=== PATIENT | male | born 1980 | race Caucasian/White ===

== ENCOUNTER → 2017-11-06 | Outpatient (CLI) | payer MEDICAID ==
[~2017-11-06] MED LIST: ACET-1748 PO; ACET500T68 PO; AMOX-362 PO; ARI10 PO; AUG875 PO; BACDS PO; BACOUD TP; CALC-707 PO; CALC1TAB24 PO; CEP500 PO; CET10 PO; CHLO118L6 TP; CHLO473M14; CIP500 PO; CIT20 PO; CLOB15CR22 TP; DICY10CA11 PO; DOC100 PO; DOCU-416 PO; FLU100 PO; FLUC100T35 PO; GUAI-244 PO; HYDR28.415 TP; IBU800 PO; IBUP200C71 PO; KET10 PO; KETO10DR3; KETO5DRO71 OP; LEV500 PO; LEVO-3 PO; LITC450 PO; LOP2 PO; LOPE-147 PO; LOPE-84 PO; LOR1 PO; LOR5 PO; LOR5/325 PO; MENT113P8 TP; MENT118G; MET500 PO; NAPR220T86 PO; NIT100 PO; OMEP-153 PO; OMEP-259 GT; OND8 PO; ONDA4TAB PO; OXYB5TAB86 PO; OXYC-865 PO; PHENA200 PO; POLY17PO21 PO; TOLN150S5 TP; TOP100 PO; TRIA15CR40 TP; VEN75 PO; [UNRECOGNIZED DRUG - CODE]; [UNRECOGNIZED DRUG - CODE] TP; [UNRECOGNIZED DRUG - CODE] TP; [UNRECOGNIZED DRUG - CODE] TP; [UNRECOGNIZED DRUG - CODE] TP
--- NOTE | 2017-11-06 13:46 | RADIOLOGY IMAGING REPORT ---
FACILITY: [facility] - [place] PATIENT NAME: Robel Cason : 1980 MR: [id number] V: [id number] EXAM DATE: ORDERING PHYSICIAN: ADRIANA KAUR TECHNOLOGIST: Location: [facility] [place] Patient: Robel Cason : 1980 Visit/Account:[id number] Date of Sevice: 11/06/2017 Exam type: CHEST PA AND LAT History: Cough and congestion x1 month Comparison: Number second 2016. Findings: Patient's made a limited inspiratory effort producing crowding the bronchovascular markings bilateral ly. The appearance is similar to the prior study other than a slight increase in peribronchial thick ening in the lower lobes. No lobar consolidation identified. There is no evidence of pleural effusi ons or overt pulmonary edema. Cardiac silhouette appears normal. IMPRESSION: 1. Hypoventilatory changes from a limited inspiratory effort Increased peribronchial thickening in the lower lung connors which may represent an acute peribronchia l inflammatory process Report Dictated By: Rachel Ba MD at 11/06/2017 1:41 PM Report E-Signed By: Rachel Ba MD at 11/06/2017 1:43 PM WSN:[email or web address]
== END ==
LOC: RAD 11:39
PROVIDERS: ATTEND Family Medicine
DX: R91.8 Other nonspecific abnormal finding of lung field (principal)
CPT/HCPCS: 71046

== ENCOUNTER → 2018-02-26 | Outpatient (CLI) | payer MEDICAID ==
[2018-02-26 10:37] LABS: PLATELET COUNT, AUTOMATED 211 K/uL (150-450)
--- NOTE | 2018-02-26 13:27 | RADIOLOGY IMAGING REPORT ---
FACILITY: [facility] - [place] PATIENT NAME: Robel Cason : 1980 MR: [id number] V: [id number] EXAM DATE: ORDERING PHYSICIAN: PEDRO DYSON TECHNOLOGIST: Location: [facility] Patient: Robel Cason : 1980 Visit/Account:[id number] Date of Sevice: 02/26/2018 Exam type: CHEST PA AND LAT History: Follow-up appointment for prior cough and congestion Comparison: November 06, 2017. Findings: There are hypoventilatory changes from a limited inspiratory effort. There is been slight decrease i n the peribronchial thickening in the lower lobes. No lobar infiltrates are seen. There is no evide nce of pleural effusions or overt pulmonary edema. The cardiac silhouette is normal in size. IMPRESSION: 1. Partial improvement of the peribronchial thickening the lower lung connors when compared the prior study Report Dictated By: Rachel Ba MD at 02/26/2018 1:22 PM Report E-Signed By: Rachel Ba MD at 02/26/2018 1:24 PM WSN:[email or web address]
== END ==
LOC: RAD 10:11
PROVIDERS: ATTEND Internal Medicine Hematology
DX: R92.8 Other abnormal and inconclusive findings on diagnostic imaging of breast (principal); C62.92 Malignant neoplasm of left testis, unspecified whether descended or undescended
CPT/HCPCS: 36415; 71046; 82040; 82105; 82247; 82310; 82374; 82435; 82565; 82947; 83615; 84075; 84132; 84155; 84295; 84450; 84460; 84520; 84702; 85007; 85027

== ENCOUNTER 2018-03-05 10:35 | Outpatient (RCR) | payer MEDICAID ==
[~2018-03-05 10:35] MED LIST changes: -CHLO473M14; +CHLO473M14 RINSE; -KETO10DR3; +KETO10DR3 OU; +MENT118G TOP; +NAPR220C12 PO
[2018-03-05 10:52] VITALS: BP 119/74
--- NOTE | 2018-03-05 16:29 | ONCOLOGY FOLLOW UP NOTE ---
EVENT DATE: March 05, 2018 DIAGNOSES 1. 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 2. Down syndrome. 3. Obstructive sleep apnea. 4. Elastosis perforans serpiginosa. CHIEF COMPLAINT The patient is here today for followup of his seminoma. ONCOLOGY HISTORY The patient is a resident of the [facility] with mental retardation, and most of the history was taken from a caregiver. He is a 37-year-old male with Down syndrome. PRESENTATION With back pain in 2008 with large mass of the left testicle. DIAGNOSTIC EVALUATION Testicular ultrasound done on December 08, 2008 showed a large heterogeneous hypervascular mass about 7.5 cm. Chest x-ray showed a widened mediastinum. Preoperative tumor marker showed alpha fetoprotein less than 1, beta HCG mildly elevated at 27 and LDH high at 1314. PROCEDURE Left radical orchiectomy done on December 08, 2008. PATHOLOGY Pure seminoma with penetration of the tunica albuginea, but not to the tunica vaginalis, consistent with t2 lesion. STAGING CT of chest, abdomen and pelvis done on December 09, 2008 showed bulky upper mediastinal adenopathy as well as extensive bulky retroperitoneal adenopathy. There was a question of skeletal involvement in the lumbar spine. STAGE Stage IIIB ([id number]) pure seminoma of the left testicle with extensive retroperitoneal and mediastinal adenopathy. TREATMENT The patient received four courses of BEP chemotherapy with bleomycin, etoposide and cisplatin between November 2008 through January 2009 with residual mediastinal and retroperitoneal masses up to 3 cm in size. HISTORY OF PRESENT ILLNESS The patient is here today for followup of his seminoma of the left testicle. He is doing fine currently except for occasional diarrhea. PAST MEDICAL HISTORY 1. Seminoma of the left testicle diagnosed November 2008. 2. Left hydronephrosis secondary to obstruction due to compression by the surrounding masses. 3. Obstructive sleep apnea diagnosed September 2002. 4. Down syndrome. 5. Elastosis perforans serpiginosa. PAST SURGICAL HISTORY 1. In November 2008, left radical orchiectomy. 2. In November 2008, left ureteral stent placement. 3. In February 2009, left ureteral stent placement. 4. In July 2009, replacement of left double J ureteral stent. 5. In January 2010, replacement of left double J ureteral stent. 6. In August 2010, the patient had replacement of the left double J ureteral stent. SOCIAL HISTORY The patient has Down syndrome with mental retardation. He is a resident of the [facility]. His guardian is his father who lives in [place], [place]. His mother lives in [place]. No history of tobacco, alcohol or drugs. FAMILY HISTORY According to his caregiver, there is positive family history of cancer on the father's side. CURRENT MEDICATIONS 1. Abilify 10 mg daily. 2. Tylenol 500 mg p.r.n. 3. Antacid 500 mg chewable tablets, two tablets as needed. 4. Imodium p.r.n. for diarrhea. 5. Athlete foot spray as needed. 6. Bacitracin zinc ointment as needed. 7. Oxycodone/acetaminophen 5/325 mg one to two tablets every six hours p.r.n. 8. Colace 100 mg twice daily. 9. Dicyclomine/hydrochloride 10 mg four times daily. 10. Effexor 75 mg daily. 11. Topamax 100 mg tablet twice daily. 12. Omeprazole 20 mg daily. 13. Zyrtec 10 mg at bedtime. 14. Abilify 10 mg at bedtime. ALLERGIES No known drug allergies. REVIEW OF SYSTEMS CONSTITUTIONAL: No appetite or weight change. No fever, chills or sweating. No recent infection. HEENT: Ears: No tinnitus or hearing problem. Nose: No nasal discharge or epistaxis. Throat: No sore throat or mouth ulcers. Eyes: No diplopia or visual changes. RESPIRATORY: The patient has dry cough. CARDIOVASCULAR: No chest pain, orthopnea, or paroxysmal nocturnal dyspnea (PND) . No edema. No palpitations. GASTROINTESTINAL: No nausea or vomiting. The patient has occasional diarrhea. No constipation. No change in bowel movements. No heartburn or swallowing difficulties. No abdominal pain. No jaundice. No hematemesis, melena or rectal bleeding. GENITOURINARY: No hematuria or dysuria. MUSCULOSKELETAL: No pain in the muscles, joints or bones. NEUROLOGICAL: No tingling or numbness in the hands or feet. No headaches or convulsions. HEMATOLOGIC/LYMPHATIC: No bleeding or easy bruising. No weakness or fatigue. No enlarged lymph nodes. SKIN: No skin rash or lumps. PSYCHIATRIC: No anxiety or depression. PHYSICAL EXAMINATION GENERAL: Looks stable. Well-developed, well-nourished, and in no acute distress. VITAL SIGNS: Blood pressure 119/74, pulse 62 per minute, respirations 18 per minute, temperature 98.6, pulse ox 96% on room air. HEENT: Head: Atraumatic. No sinus tenderness to palpation. Eyes: No icterus or conjunctivitis. Mouth and throat: No oral thrush or mucositis. NECK: Supple. No cervical or supraclavicular lymphadenopathy. LUNGS: Clear to auscultation and percussion bilaterally. HEART: Regular rate and rhythm. No gallops, murmurs, clicks or rubs. ABDOMEN: Soft and lax. No tenderness. No hepatosplenomegaly. No masses. EXTREMITIES: No cyanosis, clubbing or edema. LYMPHATICS: No peripheral lymphadenopathy. NEUROLOGICAL: Conscious, alert and oriented times three. No focal motor or sensory deficits. PSYCHIATRIC: Mood and affect appear normal. SKIN: No skin rash, bruise or purpuric eruption. DIAGNOSTIC DATA CBC showed white count 3.2, hemoglobin 14, 8, hematocrit 42.7, platelets 211, 000. Chem panel totally normal except creatine 1.3, BUN 25, blood sugar 63. Other parameters are normal. Beta-HCG is normal, less than 2. Alpha fetoprotein is normal at 2 and the LDH is normal at 318. Chest x-ray on February 26, 2018 showed improvement of the peribronchial thickening and no masses could be appreciated. ASSESSMENT 1. Stage IIIB (T2 N3 M1aS2) pure seminoma of the left testicle with extensive retroperitoneal and mediastinal adenopathy, status post left radical orchiectomy done November 2008, status post four courses of BEP with bleomycin, etoposide and cisplatin received between November 2008 through January 2009 with some residual mediastinal and retroperitoneal masses up to 3 cm in size, which were decreasing in size by previous CT scans. Tumor markers with alpha fetoprotein, beta-HCG and LDH are normal currently. I am planning to continue followup. I will see him again in six months with CBC, chem panel, beta-HCG, LDH, alpha fetoprotein and chest x-ray. 2. Down syndrome. The patient is a resident of the [facility]. 3. Elastosis perforans serpiginosa. 4. Obstructive sleep apnea. PLAN 1. Continue followup. 2. The patient to return in six months with CBC, chem panel, LDH, alpha fetoprotein, beta-HCG and chest x-ray. 3. The patient to contact us for any new concern or complaints. DARRELL
== END 2018-03-25 13:52 | disposition home or self-care (01) ==
LOC: ONC 10:35
PROVIDERS: ATTEND Internal Medicine Hematology
DX: Z85.47 Personal history of malignant neoplasm of testis (principal); Q90.9 Down syndrome, unspecified; L87.2 Elastosis perforans serpiginosa; Z92.21 Personal history of antineoplastic chemotherapy; Z79.899 Other long term (current) drug therapy; G47.33 Obstructive sleep apnea (adult) (pediatric)
CPT/HCPCS: 99212

== ENCOUNTER 2018-03-12 00:53 | Day surgery (SDC) | payer MEDICAID ==
[~2018-03-12] VITALS: Ht 152.4 cm; Wt 116.1 kg
[2018-03-12] MEDS ORDERED: PROPOFOL EMUL(*) 10MG/ML 20 ML 40 ML ONE (10:10)
[2018-03-12] MEDS ORDERED: NORMOSOL R SOLN(*) 1000 ML BAG 1,000 ML IV PRN (10:30)
[2018-03-12] MEDS ORDERED: LIDOCAINE/SOD BICARB 8.4% SYR ID ONE (10:30)
[2018-03-12 10:45] VITALS: BP 116/74
[2018-03-12] MEDS ORDERED: SUCCINYLCHOL CHL 200MG/10ML VL ONE (11:15)
[2018-03-12] MEDS ORDERED: PROPOFOL EMUL(*) 10MG/ML 20 ML 20 ML ONE (12:31)
[2018-03-12 12:52] VITALS: BP 83/56
[2018-03-12 12:56] VITALS: BP 90/67
[2018-03-12 13:00] VITALS: BP 95/72
[2018-03-12 13:15] VITALS: BP 110/80
[2018-03-12 13:25] VITALS: BP 112/78
== END 2018-03-12 13:35 | disposition home or self-care (01) ==
LOC: OR 00:53
PROVIDERS: ATTEND Internal Medicine Gastroenterology
DX: K64.8 Other hemorrhoids (principal)
CPT/HCPCS: 00811; 45380; 88305; J0330; J2704

== ENCOUNTER → 2018-03-12 | Outpatient (CLI) | payer MEDICAID | LOC: RESP 21:03 | PROVIDERS: ATTEND Family Medicine | DX: G47.33 Obstructive sleep apnea (adult) (pediatric) (principal); G47.36 Sleep related hypoventilation in conditions classified elsewhere; E66.9 Obesity, unspecified ==

== ENCOUNTER → 2018-05-12 | Outpatient (REF) | payer MEDICAID ==
[~2018-05-12] MED LIST changes: +IBUP-136 PO; -IBUP200C71 PO
== END ==
LOC: ZZSENDIN 17:43
PROVIDERS: ATTEND Urology
DX: R31.1 Benign essential microscopic hematuria (principal); B96.89 Other specified bacterial agents as the cause of diseases classified elsewhere
CPT/HCPCS: 87088

== ENCOUNTER → 2018-05-13 | Outpatient (CLI) | payer MEDICAID | LOC: RESP 19:40 | PROVIDERS: ATTEND Family Medicine | DX: G47.33 Obstructive sleep apnea (adult) (pediatric) (principal) ==

== ENCOUNTER → 2018-08-27 | Outpatient (CLI) | payer MEDICAID ==
[2018-08-27 09:00] LABS: PLATELET COUNT, AUTOMATED 190 K/uL (150-450)
--- NOTE | 2018-08-27 09:42 | RADIOLOGY IMAGING REPORT ---
FACILITY: [facility] - [place] PATIENT NAME: Robel Cason : 1980 MR: [id number] V: [id number] EXAM DATE: ORDERING PHYSICIAN: PDERO DYSON TECHNOLOGIST: Location: [facility] [place] Patient: Robel Cason : 1980 Visit/Account:[id number] Date of Sevice: 08/27/2018 2 VIEWS CHEST INDICATION: Flulike symptoms, cough COMPARISON: xray February 26, 2018 FINDINGS: Heart size within normal limits. There is mild linear prominence of the central interstitium with peribronchial cuffing noted. No lia eolar consolidation, effusion or pneumothorax. IMPRESSION: 1. Mild interstitial/central bronchitic changes indicative of acute/chronic bronchitis, atypical pne umonitis or reactive airways disease. Report Dictated By: Orlando Padgett MD at 08/27/2018 9:34 AM Report E-Signed By: Orlando Padgett MD at 08/27/2018 9:37 AM WSN:[email or web address]
== END ==
LOC: RAD 08:32
PROVIDERS: ATTEND Internal Medicine Hematology
DX: C62.92 Malignant neoplasm of left testis, unspecified whether descended or undescended (principal)
CPT/HCPCS: 36415; 71046; 82040; 82105; 82247; 82310; 82374; 82435; 82565; 82947; 83615; 84075; 84132; 84155; 84295; 84450; 84460; 84520; 84702; 85007; 85027

== ENCOUNTER 2018-09-03 10:28 | Outpatient (RCR) | payer MEDICAID ==
[~2018-09-03 10:28] MED LIST changes: +POLY17PO11 PO; -POLY17PO21 PO
--- NOTE | 2018-09-04 20:00 | ONCOLOGY FOLLOW UP NOTE ---
EVENT DATE: September 03, 2018 CHIEF COMPLAINT Patient is here for followup of stage IIIB testicular cancer. HISTORY OF PRESENT ILLNESS Robel is seen today in six-month followup. He is a 38-year-old male who presented with left testicular cancer in November 2008. He underwent treatment with four courses of BEP. Tumor markers have remained within the normal limits. He has Down syndrome and is a resident at the [facility]. Overall, he is doing well. Much of his history is related by his caregiver who accompanies him. He has had a recent "cold," but no evidence of fever, significant cough, or shortness of breath. Most recent chest x-ray showed mild interstitial/central bronchitic changes felt to be acute/chronic bronchitis. He denies any other new complaints. MEDICAL HISTORY 1. 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 2. Down syndrome. 3. Obstructive sleep apnea. 4. Elastosis perforans serpiginosa. SURGICAL HISTORY 1. In November 2008, left radical orchiectomy. 2. In November 2008, left ureteral stent placement. 3. In February 2009, left ureteral stent placement. 4. In July 2009, replacement of left double-J ureteral stent. 5. In January 2010, replacement of left double-J ureteral stent. 6. In August 2010, the patient had replacement of the left double-J ureteral stent. SOCIAL HISTORY The patient has Down syndrome with mental retardation. He is a resident of the [facility]. His guardian is his father who lives in [place], [place]. His mother lives in [place]. No history of tobacco, alcohol, or drugs. FAMILY HISTORY According to his caregiver, there is positive family history of cancer on the father's side. CURRENT MEDICATIONS 1. Abilify 10 mg daily. 2. Tylenol 500 mg p.r.n. 3. Antacid 500 mg chewable tablets, two tablets as needed. 4. Imodium p.r.n. for diarrhea. 5. Athlete foot spray as needed. 6. Bacitracin zinc ointment as needed. 7. Oxycodone/acetaminophen 5/325 mg one to two tablets every six hours p.r.n. 8. Colace 100 mg twice daily. 9. Dicyclomine/hydrochloride 10 mg four times daily. 10. Effexor 75 mg daily. 11. Topamax 100 mg tablet twice daily. 12. Omeprazole 20 mg daily. 13. Zyrtec 10 mg at bedtime. 14. Abilify 10 mg at bedtime. ALLERGIES No known drug allergies. REVIEW OF SYSTEMS A 12-point review of systems is performed and is negative except as stated above. PHYSICAL EXAMINATION VITAL SIGNS: Recorded in medical record. HEAD: Normocephalic, atraumatic. EYES: Consistent with Down syndrome. No scleral icterus. MOUTH: Slightly dry mucous membranes (mouth breather). No lesions. No erythema in the posterior pharynx. LYMPHATICS: No palpable adenopathy. LUNGS: Clear bilaterally. CARDIOVASCULAR: Heart rate regular, 84 per minute without murmur, S3, or S4. EXTREMITIES: No edema. NEUROLOGIC: Nonfocal. PSYCHIATRIC: Stable mood and affect. Patient has had no issues at [facility]. SKIN: Evidence of erythema with some mild blanching, consistent with elastosis perforans serpiginosa. LABORATORIES CBC reveals a WBC of 3.1, ANC of 3.4, hemoglobin 13.4, hematocrit 40.0, platelets 190,000. CMP was within normal limits except for BUN 43 and creatinine 1.5, stable. Alpha-fetoprotein, beta HCG, and LDH were all within normal limits. IMPRESSION AND PLAN 1. Stage IIIB (T2 N3 M1a S2) pure seminoma of the left testicle with extensive retroperitoneal and mediastinal adenopathy. Underwent left radical orchiectomy in November 2008, followed by four courses of bleomycin, etoposide, and cisplatin (BEP), completed January 2009. Tumor markers have remained within normal limits. He denies any excessive shortness of breath, and his weight is stable. 2. Upper respiratory infection. Caregiver relates a recent "cold." Chest x- ray showed mild interstitial/central bronchitic changes consistent with an acute versus chronic bronchitis. He has had no fevers. 3. Down syndrome. Happily living at [facility]. 4. Leukopenia. Mild, but very stable. He has had no intercurrent infections. 5. Renal insufficiency. BUN and creatinine were 43 and 1.5 respectively. This has been stable over the past three to four years. 6. Follow up in six months for continued care. CBC, CMP, LDH, alpha- fetoprotein, beta HCG, and chest x-ray will be done before that visit. DARRELL
== END 2018-09-23 13:24 | disposition home or self-care (01) ==
LOC: ONC 10:28
PROVIDERS: ATTEND Internal Medicine Hematology
DX: Z85.47 Personal history of malignant neoplasm of testis (principal); Q90.9 Down syndrome, unspecified; L87.2 Elastosis perforans serpiginosa; Z92.21 Personal history of antineoplastic chemotherapy; Z79.899 Other long term (current) drug therapy; G47.33 Obstructive sleep apnea (adult) (pediatric); D72.819 Decreased white blood cell count, unspecified; N18.9 Chronic kidney disease, unspecified
CPT/HCPCS: 99212

== ENCOUNTER → 2019-03-04 | Outpatient (REF) | payer MEDICAID ==
[~2019-03-04] MED LIST changes: +ARIP15TA9 PO; +CALC168T17 PO; +VENL150C3 PO; -[UNRECOGNIZED DRUG - CODE]; +[UNRECOGNIZED DRUG - CODE] TOP; +[UNRECOGNIZED DRUG - CODE] TP
[2019-03-04 12:51] LABS: PLATELET COUNT, AUTOMATED 329 K/uL (150-450)
== END ==
LOC: ZZSENDIN 12:40
PROVIDERS: ATTEND Internal Medicine Hematology
DX: C62.90 Malignant neoplasm of unspecified testis, unspecified whether descended or undescended (principal)
CPT/HCPCS: 82040; 82105; 82247; 82310; 82374; 82435; 82565; 82947; 83615; 84075; 84132; 84155; 84295; 84450; 84460; 84520; 84702; 85025

== ENCOUNTER → 2019-03-04 | Outpatient (REF) | payer MEDICAID | PROVIDERS: ATTEND Nurse Practitioner Family | DX: R05 Cough (principal); R06.00 Dyspnea, unspecified | CPT/HCPCS: 83880; 85651 ==

== ENCOUNTER 2019-03-05 04:21 | Inpatient (IN) | payer MEDICAID ==
[~2019-03-05] VITALS: Ht 154.9 cm; Wt 123.4 kg
[2019-03-05] VITALS (9 sets, daily range): BP systolic 82–113; BP diastolic 48–73
[~2019-03-05 04:21] MED LIST changes: -ARIP15TA9 PO; -VENL150C3 PO
--- NOTE | 2019-03-05 04:39 | ER Report ---
History and Physical Time Seen By MD: 04:38 Hx. of Stated Complaint: LOW OXYGEN LEVELS AT HOME, WAS DIAGNOSED WITH PNEUMONIA YESTERDAY. (NADINE SUMNER MD) Time Seen By MD: 07:32 (BRISEYDA SPARKS DO) HPI/ROS CHIEF COMPLAINT: hypoxia and shortness of breath. HISTORY OF PRESENT ILLNESS: This is a 38 year old male. He was seen at urgent care yesterday, and diagnosed with pneumonia. He has been short of breath with worsening trouble breathing all day and night until this morning. Subjective fevers/chills noted by staff, but no measured fevers. He says that he has troubl e breathing, but no pain with breathing. He has a mild cough, non-productive. No nausea or vomiting. Not acting like he feels well. Denies chest pain or other pain at this time. I cannot find a chest x-ray in the system. I do see labs from yesterday, normal white blood cell count, poor renal function. Oxygen saturations are 80% on room air on admission to the ER this morning. No history of needing oxygen. He is not on antibiotics at this time. (NADINE SUMNER MD) HPI/ROS Please see Dr. Sumner note (BRISEYDA SPARKS DO) Allergies: Coded Allergies: No Known Drug Allergies (Verified , 03/05/18) Home Meds Active Scripts Chlorhexidine Gluconate (HIBICLENS) 118 Ml Liquid, 1 ML TP DAILY for 30 Days, #1 BOTTLE 3 Refills Prov:JACOB STARKEY NPC 06/25/18 Reported Medications Venlafaxine Hcl (VENLAFAXINE HCL ER) 150 Mg Cap.er.24h, 300 MG PO QDAY 03/05/19 Levothyroxine Sodium (LEVOTHYROXINE SODIUM) 100 Mcg Tablet, 175 MCG PO QDAY, TAB 03/05/19 Aripiprazole (ABILIFY) 15 Mg Tablet, 15 MG PO QHS, TAB 03/05/19 Chlorhexidine Gluconate (HIBICLENS) 118 Ml Liquid, 118 ML TP 02/10/19 Loperamide Hcl (ANTI-DIARRHEAL) 2 Mg Capsule, 2 MG PO, CAPSULE 02/10/19 Naproxen Sodium (ALEVE) 220 Mg Capsule, 220 MG PO Q12H PRN for PAIN, CAPSULE 03/05/18 Guaifenesin (ROBAFEN) 100 Mg/5 Ml Liquid, 400 MG PO Q4-6H PRN for CONGESTION 09/03/17 Ketotifen Fumarate (ALLERGY EYE DROPS) 10 Ml Drops, 1 GTT OU BID 09/03/17 Menthol/Zinc Oxide (GOLD TADEO MEDICATED BODY POWD) 113 Gm Powder, 113 GM TP 09/03/17 Chlorhexidine Gluconate (Peridex) 0.12 % Mouthwash, RINSE HS 09/03/17 Menthol (BIOFREEZE) 118 Ml Gel..ml., TOP PRN 09/03/17 Ammonium Lactate (Ammonium Lactate) 12 % Lotion, TOP BID 09/03/17 Oxybutynin Chloride (OXYBUTYNIN CHLORIDE) 5 Mg Tablet, 5 MG PO QHS, TAB 06/07/17 Triamcinolone Acetonide 0.1% Cr 15 Gm Tube (TRIAMCINOLONE ACETONIDE 0.1% CREAM) 15 Gm Cream..g., 15 GM TP PRN, TUBE 06/07/17 Acetaminophen (TYLENOL EXTRA STRENGTH) 500 Mg Tablet, 1-2 TAB PO Q4-6H, TAB 06/07/17 Ibuprofen (IBUPROFEN) 200 Mg Capsule, 1-2 CAP PO Q6H PRN for PAIN, CAPSULE 03/08/16 Hydrocortisone/Aloe Vera (HYDROCORTISONE 1% OINTMENT) 28 Gm Oint...g., 28 GM TP PRN 03/08/16 Clobetasol Propionate/Emoll (CLOBETASOL EMOLLIENT 0.05% CRM) 15 Gm Cream..g., 0 TP PRN 03/08/16 Bacitracin (BACITRACIN ZINC) 0.9 Gm Oint, 0.9 GM TP PRN 03/08/16 Tolnaftate (ATHLETE'S FOOT) 150 Gm Poplar, 150 GM TP PRN, SPRAY 03/08/16 Cetirizine Hcl (Zyrtec) 10 Mg Tab, 10 MG PO QHS 03/11/13 Discontinued Reported Medications Calcium Carbonate (ANTACID) 168 Mg Tab.chew, 168 MG PO, #2 TAB.CHEW 02/10/19 Levothyroxine Sodium (LEVOTHYROXINE SODIUM) 100 Mcg Tablet, 125 MCG PO QDAY, TAB 06/07/17 Venlafaxine Hcl (Effexor) 75 Mg Tab, 150 MG PO QDAY 03/11/13 Aripiprazole (ABILIFY (OR EQUIV)) 10 Mg Tab, 10 MG PO HS 03/11/13 Reviewed Nurses Notes: Yes (NADINE SUMNER MD) Hx Smoking: No Hx Substance Use Disorder: No Hx Alcohol Use: No (NADINE SUMNER MD) Constitutional Vital Sign - Last 24 Hours 03/05/19 03/05/19 03/05/19 03/05/19 04:26 05:30 06:00 06:30 Temp 98.6 Pulse 92 97 102 Resp 22 B/P (MAP) 104/63 109/52 (71) 91/57 (68) 88/61 (70) Pulse Ox 80 96 98 O2 Delivery Room Air (BRISEYDA SPARKS DO) Physical Exam General Appearance: The patient is alert. No acute distress. Ill appearing. Eyes: Pupils are equal, round. No pallor, injection or icterus. ENT: Mucous membranes are moist. Normal oral mucosa. Posterior oropharynx is normal. Neck: Supple and non tender. Respiratory: Lungs are clear to auscultation. No rales or wheezing noted. Cardiovascular: Regular rate and rhythm. No murmurs, gallops or rubs. Normal capillary refill. Gastrointestinal: Abdomen is soft and non tender. Nondistended. Normal active bowel sounds. Neurological: Alert and oriented x3. No focal neurologic deficits Skin: Warm and dry. No rashes. Musculoskeletal: Extremities are nontender. DIFFERENTIAL DIAGNOSIS: After history and physical exam, differential diagnosis was considered for hypoxia and shortness of breath, with diagnosis of pneumonia reported from yesterday, but not on antibiotics at this time. Past history would also be concerning for pulmonary embolism. He has history or testicular cancer, without evidence of recurrence. Fairly new changes in renal function over the last year are puzzling as well. (NADINE SUMNER MD) Physical Exam Please see Dr. Sumner note (BRISEYDA SPARKS DO) Medical Decision Making Data Points Result Diagram: 03/05/19 0438 03/05/19 1255 Laboratory Hematology Test 03/05/19 00:00 03/05/19 04:38 03/05/19 07:45 B-Type Natriuretic Peptide 59 pg/ml (0-100) Red Blood Count 3.14 M/uL (4.00-5.60) Mean Corpuscular Volume 97.2 fL (80.0-96.0) Mean Corpuscular Hemoglobin 33.0 pg (26.0-33.0) Mean Corpuscular Hemoglobin Concent 34.0 g/dL (32.0-36.0) Red Cell Distribution Width 14.8 % (11.5-14.5) Mean Platelet Volume 8.4 fL (7.2-11.1) Neutrophils (%) (Auto) 73.9 % (39.4-72.5) Lymphocytes (%) (Auto) 13.6 % (17.6-49.6) Monocytes (%) (Auto) 9.2 % (4.1-12.4) Eosinophils (%) (Auto) 2.2 % (0.4-6.7) Basophils (%) (Auto) 1.1 % (0.3-1.4) Nucleated RBC Relative Count (auto) 0.0 /100WBC Neutrophils # (Auto) 5.1 K/uL (2.0-7.4) Lymphocytes # (Auto) 0.9 K/uL (1.3-3.6) Monocytes # (Auto) 0.6 K/uL (0.3-1.0) Eosinophils # (Auto) 0.2 K/uL (0.0-0.5) Basophils # (Auto) 0.1 K/uL (0.0-0.1) Nucleated RBC Absolute Count (auto) 0.00 K/uL Erythrocyte Sedimentation Rate 103 mm/HOUR (0-15) Prothrombin Time 14.2 seconds (12.0-14.4) Prothromb Time International Ratio 1.09 Activated Partial Thromboplast Time 42 seconds (23-35) D-Dimer Quantitative (PE/DVT) 1.13 ug/ml (0-0.50) Sodium Level 140 mmol/L (137-145) Potassium Level 4.2 mmol/L (3.5-5.0) Chloride Level 108 mmol/L (98-107) Carbon Dioxide Level 24 mmol/L (22-30) Blood Urea Nitrogen 67 mg/dl (9-21) Creatinine 2.60 mg/dl (0.66-1.25) Glomerular Filtration Rate Calc 27.9 Random Glucose 105 mg/dl (75-110) Calcium Level 8.9 mg/dl (8.4-10.2) Total Bilirubin 0.2 mg/dl (0.2-1.3) Aspartate Amino Transf (AST/SGOT) 10 U/L (0-35) Alanine Aminotransferase (ALT/SGPT) 18 U/L (0-56) Alkaline Phosphatase 48 U/L (0-126) Troponin I < 0.012 ng/ml Total Protein 6.9 g/dl (6.3-8.2) Albumin 3.4 g/dl (3.5-5.0) Urine Color Colorless Urine Clarity Clear Urine pH 6.0 pH (4.8-9.5) Urine Specific Watson 1.005 Urine Protein Negative mg/dL (NEGATIVE) Urine Glucose (UA) Negative mg/dL (NEGATIVE) Urine Ketones Negative mg/dL (NEGATIVE) Urine Blood Negative (NEGATIVE) Urine Nitrite Negative (NEGATIVE) Urine Bilirubin Negative (NEGATIVE) Urine Urobilinogen Negative mg/dL (0.2-1.9) Urine Leukocyte Esterase Negative (NEGATIVE) Urine RBC None /HPF (0-2/HPF) Urine WBC None /HPF (0-5/HPF) Urine Squamous Epithelial Cells Few /LPF (</=FEW) Urine Bacteria Negative /HPF (NONE-FEW) Urine Mucus None /HPF (NONE-FEW) Chemistry Test 03/05/19 00:00 03/05/19 04:38 03/05/19 07:45 B-Type Natriuretic Peptide 59 pg/ml (0-100) White Blood Count 6.9 k/uL (4.5-11.0) Red Blood Count 3.14 M/uL (4.00-5.60) Hemoglobin 10.4 g/dL (14.0-18.0) Hematocrit 30.5 % (42.0-52.0) Mean Corpuscular Volume 97.2 fL (80.0-96.0) Mean Corpuscular Hemoglobin 33.0 pg (26.0-33.0) Mean Corpuscular Hemoglobin Concent 34.0 g/dL (32.0-36.0) Red Cell Distribution Width 14.8 % (11.5-14.5) Platelet Count 321 K/uL (150-450) Mean Platelet Volume 8.4 fL (7.2-11.1) Neutrophils (%) (Auto) 73.9 % (39.4-72.5) Lymphocytes (%) (Auto) 13.6 % (17.6-49.6) Monocytes (%) (Auto) 9.2 % (4.1-12.4) Eosinophils (%) (Auto) 2.2 % (0.4-6.7) Basophils (%) (Auto) 1.1 % (0.3-1.4) Nucleated RBC Relative Count (auto) 0.0 /100WBC Neutrophils # (Auto) 5.1 K/uL (2.0-7.4) Lymphocytes # (Auto) 0.9 K/uL (1.3-3.6) Monocytes # (Auto) 0.6 K/uL (0.3-1.0) Eosinophils # (Auto) 0.2 K/uL (0.0-0.5) Basophils # (Auto) 0.1 K/uL (0.0-0.1) Nucleated RBC Absolute Count (auto) 0.00 K/uL Erythrocyte Sedimentation Rate 103 mm/HOUR (0-15) Prothrombin Time 14.2 seconds (12.0-14.4) Prothromb Time International Ratio 1.09 Activated Partial Thromboplast Time 42 seconds (23-35) D-Dimer Quantitative (PE/DVT) 1.13 ug/ml (0-0.50) Glomerular Filtration Rate Calc 27.9 Calcium Level 8.9 mg/dl (8.4-10.2) Total Bilirubin 0.2 mg/dl (0.2-1.3) Aspartate Amino Transf (AST/SGOT) 10 U/L (0-35) Alanine Aminotransferase (ALT/SGPT) 18 U/L (0-56) Alkaline Phosphatase 48 U/L (0-126) Troponin I < 0.012 ng/ml Total Protein 6.9 g/dl (6.3-8.2) Albumin 3.4 g/dl (3.5-5.0) Urine Color Colorless Urine Clarity Clear Urine pH 6.0 pH (4.8-9.5) Urine Specific Watson 1.005 Urine Protein Negative mg/dL (NEGATIVE) Urine Glucose (UA) Negative mg/dL (NEGATIVE) Urine Ketones Negative mg/dL (NEGATIVE) Urine Blood Negative (NEGATIVE) Urine Nitrite Negative (NEGATIVE) Urine Bilirubin Negative (NEGATIVE) Urine Urobilinogen Negative mg/dL (0.2-1.9) Urine Leukocyte Esterase Negative (NEGATIVE) Urine RBC None /HPF (0-2/HPF) Urine WBC None /HPF (0-5/HPF) Urine Squamous Epithelial Cells Few /LPF (</=FEW) Urine Bacteria Negative /HPF (NONE-FEW) Urine Mucus None /HPF (NONE-FEW) Coagulation Test 03/05/19 04:38 Prothrombin Time 14.2 seconds Prothromb Time International Ratio 1.09 Activated Partial Thromboplast Time 42 seconds D-Dimer Quantitative (PE/DVT) 1.13 ug/ml Urinalysis Test 03/05/19 07:45 Urine Color Colorless Urine Clarity Clear Urine pH 6.0 pH (4.8-9.5) Urine Specific Watson 1.005 Urine Protein Negative mg/dL (NEGATIVE) Urine Glucose (UA) Negative mg/dL (NEGATIVE) Urine Ketones Negative mg/dL (NEGATIVE) Urine Blood Negative (NEGATIVE) Urine Nitrite Negative (NEGATIVE) Urine Bilirubin Negative (NEGATIVE) Urine Urobilinogen Negative mg/dL (0.2-1.9) Urine Leukocyte Esterase Negative (NEGATIVE) Urine RBC None /HPF (0-2/HPF) Urine WBC None /HPF (0-5/HPF) Urine Squamous Epithelial Cells Few /LPF (</=FEW) Urine Bacteria Negative /HPF (NONE-FEW) Urine Mucus None /HPF (NONE-FEW) (BRISEYDA SPARKS DO) EKG/Imaging EKG Interpretation 12 lead EKG: Rhythm: normal sinus rhythm, rate 96 Victor: normal QRS: normal ST segments: normal Imaging CHEST SINGLE AP 03/05/2019 04:46 hours. HISTORY: Short of breath. Hypoxia. COMPARISON: 03/04/2019 and studies dating to 12/08/2008. TECHNIQUE: Portable AP view of the chest. FINDINGS: Tubes/lines/hardware: None. Pulmonary/pleura: Ill-defined rounded opacity in the right upper lobe has a similar appearance to the most recent comparison study. There is eventration of the right hemidiaphragm. Left lung remains clear. Patient's chin projects over the lung apices. There is no pneumothorax or pleural effusion. Cardiomediastinal: Cardiac and mediastinal silhouettes are within normal limits. Bones/soft tissues: No acute osseous abnormality. The visible abdomen is normal. IMPRESSION: 1. Unchanged, ill-defined rounded opacity in the right upper lobe, new from August 2018. Findings may be due to pneumonia, but follow-up chest x-ray to ensure clearing is recommended. Report Dictated By: Liat Narvaez at 03/05/2019 5:27 AM (NADINE SUMNER MD) Imaging PATIENT NAME: Robel Cason : 1980 MR: [id number] V: [id number] EXAM DATE: ORDERING PHYSICIAN: NADINE SUMNER TECHNOLOGIST: Location: [facility] Patient: Robel Cason : 1980 Visit/Account:[id number] Date of Sevice: 03/05/2019 CT of the chest, abdomen, and pelvis, without contrast: Indication: New right lung opacity. History of seminoma. Technique: Helical CT was performed through the chest, abdomen, and pelvis, without contrast. Multiplanar reconstructions are reviewed. One of the following dose optimization techniques was utilized in the performance of this exam: Automated exposure control; adjustment of the mA and/or kV according to the patient's size; or use of an iterative reconstruction technique. Specific details can be referenced in the facility's radiology CT exam operational policy. Comparison: 06/07/2017 Findings: Lungs: There is a large mass-like opacity in the right upper lobe, with ill- defined margins and a few air bronchograms. It measures approximately 7.2 x 5.1 x 5.1 cm. This likely represents pneumonia. No additional mass-like opacities or nodules are observed in either lung. Pleural spaces: There is minimal fluid in the right pleural space. There is no evidence of pleural mass or calcification. Mediastinum: There may be a few small lymph nodes in the mediastinum. There are no signs of mediastinal mass or definite lymph node enlargement. The heart and pericardial soft tissues appear unremarkable. Liver: Normal in size, shape, and density. Gallbladder and biliary tree: The gallbladder is homogeneous and unremarkable, as visualized. The bile ducts are not dilated. Pancreas: Normal in size, shape, and density. Spleen: Normal in size, shape, and density. A tiny accessory spleen appears unchanged. Adrenal glands: Normal in size and shape. There is a tiny calcification in the left adrenal gland, unchanged from the previous study. Kidneys: There is now evidence of moderate hydroureteronephrosis on the right, not observed on the previous study. The right ureter is dilated down to the level of the bladder junction. There are no signs of obstructing calculus. No focal soft tissue abnormality is clearly identified around the distal ureter or in the bladder wall. The right kidney is otherwise unremarkable and unchanged. There are no signs of intrarenal calculus. There is chronic hydronephrosis and parenchymal atrophy in the left kidney, without interval change. There are no signs of left urinary tract calculus. Intestinal structures: Unremarkable and unchanged. There are no signs of obstruction or focal inflammatory changes. The appendix appears unremarkable and unchanged. Urinary bladder: The lumen appears homogeneous and unchanged. There are no signs of intraluminal calculus, mass, or focal deformity of the bladder wall. Pelvic structures: There are no signs of soft tissue mass, lymph node enlargement, fluid, or inflammatory process. Ascites or fluid collections: None seen. Skeletal structures: Intact and unchanged. There are chronic degenerative changes in the spine. No acute skeletal deformity is identified. IMPRESSION: There is a large mass-like opacity in the right upper lobe, compatible with pneumonia. No additional pulmonary parenchymal opacities or nodules are identified. There is minimal fluid in the right pleural space. There is now evidence of moderate right hydroureteronephrosis, of indeterminant etiology. No obstructing calculus or mass is clearly identified. Urologic consultation is recommended. The evaluation of the abdomen and pelvis is otherwise unchanged. Report Dictated By: Qamar Munson MD at 03/05/2019 6:58 AM Report E-Signed By: Qamar Munson MD at 03/05/2019 7:21 AM WSN:[id number] (BRISEYDA SPARKS DO) ED Course/Re-evaluation Clinical Indication for ER IV: IV Access ED Course Initial treatment was done by obtaining labs including CBC, CMP, d-dimer as well as a chest x-ray. Given the patient's history, also included EKG and troponin. EKG and troponin were negative. CBC does not show an elevated white count. CMP does show the recent changes in his BUN and creatinine as noted above. D-dimer was elevated as well. Because of his GFR, CT angiogram with contrast is unable to be performed I reviewed the patient's old notes, specifically looking at old oncology notes. 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 He has had multiple problems with the left kidney with multiple stents and is seen Dr. Verdugo, urology, for multiple interventions. Over the last year he has had the decline in his renal function which is unexplained. Each oncology note shows that they continue to follow tumor markers including LDH, alpha- fetoprotein, and beta hCG as well as a chest x-ray on each visit. Some of the older notes seem to indicate that he had history of retroperitoneal as well as mediastinal adenopathy. I spoke with hospitalist regarding the patient's care to discuss findings as we ll as further workup that might be indicated and also discuss this with radiology. A CT scan of the chest, abdomen and pelvis was done without contrast, to further explore the abnormal appearance of chest x-ray as well as the recent decline in renal function. (NADINE SUMNER MD) ED Course I assumed patient care from Dr. Sumner at shift change at 7:00. I evaluated the patient at bedside and completed a bedside echo to gauge for general cardiac function. CT imaging resulted in further defining a right lung opacity possibly infectious in etiology or malignancy. Patient was given ceftriaxone, azithromycin to cover for community-acquired pneumonia. Patient was given fluid bolus. I discussed the patient with Dr. Verdugo who was the urologist transportation engineering technician who recommended adding inflammatory markers, tumor markers. Patient's kidney seems to be obstructed and will likely need urological intervention in the near future. I discussed the patient with Dr. Prieto who was the hospitalist on duty who accepted the patient to his service. Patient was hemodynamically stable at time of admission. Decision to Disposition Date: March 05, 2019 Decision to Disposition Time: 08:06 (BRISEYDA SPARKS DO) Depart Departure Latest Vital Signs Vital Signs Date Time Temp Pulse Resp B/P (MAP) Pulse Ox O2 Delivery O2 Flow Rate FiO2 03/05/19 06:30 102 88/61 (70) 98 03/05/19 04:26 98.6 22 Room Air (BRISEYDA SPARKS DO) Impression: Primary Impression: Renal failure (ARF), acute on chronic Additional Impressions: Shortness of breath Lung mass Hypoxia Condition: Condition Unchanged Disposition: Admitted from ER Problem Qualifiers NADINE SUMNER MD March 05, 2019 04:39 BRISEYDA SPARKS DO March 05, 2019 07:33
[2019-03-05 05:01] LABS: PLATELET COUNT, AUTOMATED 321 K/uL (150-450)
[2019-03-05 05:06] LABS: INR 1.09
--- NOTE | 2019-03-05 05:34 | RADIOLOGY IMAGING REPORT ---
FACILITY: [facility] PATIENT NAME: Robel Cason : 1980 MR: [id number] V: [id number] EXAM DATE: ORDERING PHYSICIAN: NADINE GILLESPIE TECHNOLOGIST: Location: [facility] - [place] Patient: Robel Cason : 1980 Visit/Account:[id number] Date of Sevice: 03/05/2019 CHEST SINGLE AP 03/05/2019 04:46 hours. HISTORY: Short of breath. Hypoxia. COMPARISON: 03/04/2019 and studies dating to 12/08/2008. TECHNIQUE: Portable AP view of the chest. FINDINGS: Tubes/lines/hardware: None. Pulmonary/pleura: Ill-defined rounded opacity in the right upper lobe has a similar appearance to the most recent comparison study. There is eventration of the right hemidiaphragm. Left lung remains dion ar. Patient's chin projects over the lung apices. There is no pneumothorax or pleural effusion. Cardiomediastinal: Cardiac and mediastinal silhouettes are within normal limits. Bones/soft tissues: No acute osseous abnormality. The visible abdomen is normal. IMPRESSION: 1. Unchanged, ill-defined rounded opacity in the right upper lobe, new from August 2018. Findings m ay be due to pneumonia, but follow-up chest x-ray to ensure clearing is recommended. Report Dictated By: Liat Narvaez at 03/05/2019 5:27 AM Report E-Signed By: Liat Narvaez at 03/05/2019 5:30 AM WSN:[id number]
[2019-03-05] MEDS ORDERED: IOPAMIDOL 76% 150 ML INFUS BTL 0 ML ONE (05:43)
[2019-03-05] MEDS ORDERED: NS(*) 0.9% 50 ML BAG 0 ML ONE (05:43)
--- NOTE | 2019-03-05 06:12 | EKG ---
FACILITY: [facility] [place] PATIENT NAME: MARCO ROMERO : [id number] MR: [id number] V: [id number] EXAM DATE: ORDERING PHYSICIAN: NADINE GILLESPIE TECHNOLOGIST: NEGIN Vidal Reason : hypoxia, SOB Blood Pressure : / mmHG Vent. Rate : 096 BPM Atrial Rate : 096 BPM P-R Int : 194 ms QRS Dur : 088 ms QT Int : 352 ms P-R-T Axes : -18 071 014 degrees QTc Int : 444 ms Normal sinus rhythm Normal ECG When compared with ECG of 18-NOV-2013 07:41, Vent. rate has increased BY 41 BPM Confirmed by Emre Scherer ([id number]) on 03/05/2019 7:49:24 AM Referred By: Confirmed By:Emre Rao
[2019-03-05] MEDS ORDERED: NS(*) 0.9% 500 ML BAG 500 ML IV ONE (07:20)
--- NOTE | 2019-03-05 07:24 | RADIOLOGY IMAGING REPORT ---
FACILITY: [facility] PATIENT NAME: Robel Cason : 1980 MR: [id number] V: [id number] EXAM DATE: ORDERING PHYSICIAN: NADINE GILLESPIE TECHNOLOGIST: Location: [facility] [place] Patient: Robel Cason : 1980 Visit/Account:[id number] Date of Sevice: 03/05/2019 CT of the chest, abdomen, and pelvis, without contrast: Indication: New right lung opacity. History of seminoma. Technique: Helical CT was performed through the chest, abdomen, and pelvis, without contrast. Multipl jon reconstructions are reviewed. One of the following dose optimization techniques was utilized in the performance of this exam: Autom ated exposure control; adjustment of the mA and/or kV according to the patient's size; or use of an i terative reconstruction technique. Specific details can be referenced in the facility's radiology CT exam operational policy. Comparison: 06/07/2017 Findings: Lungs: There is a large mass-like opacity in the right upper lobe, with ill-defined margins and a few air bronchograms. It measures approximately 7.2 x 5.1 x 5.1 cm. This likely represents pneumonia. No additional mass-like opacities or nodules are observed in either lung. Pleural spaces: There is minimal fluid in the right pleural space. There is no evidence of pleural ma ss or calcification. Mediastinum: There may be a few small lymph nodes in the mediastinum. There are no signs of mediastin al mass or definite lymph node enlargement. The heart and pericardial soft tissues appear unremarkabl e. Liver: Normal in size, shape, and density. Gallbladder and biliary tree: The gallbladder is homogeneous and unremarkable, as visualized. The deneen e ducts are not dilated. Pancreas: Normal in size, shape, and density. Spleen: Normal in size, shape, and density. A tiny accessory spleen appears unchanged. Adrenal glands: Normal in size and shape. There is a tiny calcification in the left adrenal gland, un changed from the previous study. Kidneys: There is now evidence of moderate hydroureteronephrosis on the right, not observed on the pr evious study. The right ureter is dilated down to the level of the bladder junction. There are no sig ns of obstructing calculus. No focal soft tissue abnormality is clearly identified around the distal ureter or in the bladder wall. The right kidney is otherwise unremarkable and unchanged. There are no signs of intrarenal calculus. There is chronic hydronephrosis and parenchymal atrophy in the left kidney, without interval change. There are no signs of left urinary tract calculus. Intestinal structures: Unremarkable and unchanged. There are no signs of obstruction or focal inflamm atory changes. The appendix appears unremarkable and unchanged. Urinary bladder: The lumen appears homogeneous and unchanged. There are no signs of intraluminal calc ulus, mass, or focal deformity of the bladder wall. Pelvic structures: There are no signs of soft tissue mass, lymph node enlargement, fluid, or inflamma tory process. Ascites or fluid collections: None seen. Skeletal structures: Intact and unchanged. There are chronic degenerative changes in the spine. No ac [place] skeletal deformity is identified. IMPRESSION: There is a large mass-like opacity in the right upper lobe, compatible with pneumonia. No additional pulmonary parenchymal opacities or nodules are identified. There is minimal fluid in the right pleural space. There is now evidence of moderate right hydroureteronephrosis, of indeterminant etiology. No obstruct ing calculus or mass is clearly identified. Urologic consultation is recommended. The evaluation of the abdomen and pelvis is otherwise unchanged. Report Dictated By: Qamar Munson MD at 03/05/2019 6:58 AM Report E-Signed By: Qamar Munson MD at 03/05/2019 7:21 AM WSN:[id number]
[2019-03-05] MEDS ORDERED: cefTRIAXone 2 GM VIAL IVP ONE (08:05)
[2019-03-05] MEDS ORDERED: AZITHROMYCIN(*) 500 MG 500 MG in NS(*) 0.9% 250 ML BAG 250 ML IVPB ONE (08:05)
[2019-03-05] MEDS ORDERED: LEVO-3 PO (08:38)
[2019-03-05] MEDS ORDERED: VENL150C3 PO (08:38)
[2019-03-05] MEDS ORDERED: ARIP15TA9 PO (08:38)
[2019-03-05] MEDS ORDERED: NS(*) 0.9% 1000 ML BAG 1,000 ML IV PRN (11:45)
--- NOTE | 2019-03-05 13:41 | History & Physical ---
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 The cough started about 5-7 days ago. He had one episode of vomiting after one paroxysm of coughing. No reported f/c/diarrhea/sob/cp. He has otherwise been eating fairly well. He was noted to have a pulse oximetry reading of 79%, so went to the Urgent Care. He reportedly was diagnosed with pneumonia, but was only sent home on nebulizer treatment, per the staff from the [facility]. He continued to have the cough and was noted to have hypoxia again by pulse oximetry early this morning, so was brought to the ER. History Problems: (1) HALLIE (obstructive sleep apnea) Status: Chronic (2) Malignant neoplasm of left descended testis Status: Chronic (3) Down syndrome Status: Chronic Home Meds Active Scripts Chlorhexidine Gluconate (HIBICLENS) 118 Ml Liquid, 1 ML TP DAILY for 30 Days, #1 BOTTLE 3 Refills Prov:JACOB STARKEY NPC 06/25/18 Reported Medications Venlafaxine Hcl (VENLAFAXINE HCL ER) 150 Mg Cap.er.24h, 300 MG PO QDAY 03/05/19 Levothyroxine Sodium (LEVOTHYROXINE SODIUM) 100 Mcg Tablet, 175 MCG PO QDAY, TAB 03/05/19 Aripiprazole (ABILIFY) 15 Mg Tablet, 15 MG PO QHS, TAB 03/05/19 Chlorhexidine Gluconate (HIBICLENS) 118 Ml Liquid, 118 ML TP 02/10/19 Loperamide Hcl (ANTI-DIARRHEAL) 2 Mg Capsule, 2 MG PO, CAPSULE 02/10/19 Naproxen Sodium (ALEVE) 220 Mg Capsule, 220 MG PO Q12H PRN for PAIN, CAPSULE 03/05/18 Guaifenesin (ROBAFEN) 100 Mg/5 Ml Liquid, 400 MG PO Q4-6H PRN for CONGESTION 09/03/17 Ketotifen Fumarate (ALLERGY EYE DROPS) 10 Ml Drops, 1 GTT OU BID 09/03/17 Menthol/Zinc Oxide (GOLD TADEO MEDICATED BODY POWD) 113 Gm Powder, 113 GM TP 09/03/17 Chlorhexidine Gluconate (Peridex) 0.12 % Mouthwash, RINSE HS 09/03/17 Menthol (BIOFREEZE) 118 Ml Gel..ml., TOP PRN 09/03/17 Ammonium Lactate (Ammonium Lactate) 12 % Lotion, TOP BID 09/03/17 Oxybutynin Chloride (OXYBUTYNIN CHLORIDE) 5 Mg Tablet, 5 MG PO QHS, TAB 06/07/17 Triamcinolone Acetonide 0.1% Cr 15 Gm Tube (TRIAMCINOLONE ACETONIDE 0.1% CREAM) 15 Gm Cream..g., 15 GM TP PRN, TUBE 06/07/17 Acetaminophen (TYLENOL EXTRA STRENGTH) 500 Mg Tablet, 1-2 TAB PO Q4-6H, TAB 06/07/17 Ibuprofen (IBUPROFEN) 200 Mg Capsule, 1-2 CAP PO Q6H PRN for PAIN, CAPSULE 03/08/16 Hydrocortisone/Aloe Vera (HYDROCORTISONE 1% OINTMENT) 28 Gm Oint...g., 28 GM TP PRN 03/08/16 Clobetasol Propionate/Emoll (CLOBETASOL EMOLLIENT 0.05% CRM) 15 Gm Cream..g., 0 TP PRN 03/08/16 Bacitracin (BACITRACIN ZINC) 0.9 Gm Oint, 0.9 GM TP PRN 03/08/16 Tolnaftate (ATHLETE'S FOOT) 150 Gm [place], 150 GM TP PRN, SPRAY 03/08/16 Cetirizine Hcl (Zyrtec) 10 Mg Tab, 10 MG PO QHS 03/11/13 Discontinued Reported Medications Calcium Carbonate (ANTACID) 168 Mg Tab.chew, 168 MG PO, #2 TAB.CHEW 02/10/19 Levothyroxine Sodium (LEVOTHYROXINE SODIUM) 100 Mcg Tablet, 125 MCG PO QDAY, TAB 06/07/17 Venlafaxine Hcl (Effexor) 75 Mg Tab, 150 MG PO QDAY 03/11/13 Aripiprazole (ABILIFY (OR EQUIV)) 10 Mg Tab, 10 MG PO HS 03/11/13 Allergies: Coded Allergies: No Known Drug Allergies (Verified , 03/05/18) Hx Smoking: No Caffeine Intake: Coffee, Soda Caffeine/Cups Per Day: 5-6x/day Hx Alcohol Use: No Hx Substance Use Disorder: No Review of Systems All Systems Reviewed/Normal: Yes, Except as Noted Exam Vital Signs Vital Signs Date Time Temp Pulse Resp B/P (MAP) Pulse Ox O2 Delivery O2 Flow Rate FiO2 03/05/19 11:57 91 03/05/19 09:18 98.1 25 104/72 (83) Nasal Cannula 2.0 03/05/19 08:55 97 General Appearance: Alert, Awake, No Acute Distress Neuro: No Gross deficits (Ansers questions.) Eyes: PERRLA ENT: Moist Mucous Membranes Cardiovascular: Regular Rate and Rhythm Respiratory: Clear to Auscultation GI: Other (Some suprapubic area discomfort with palpation. Soft, non- distended. No guarding.) : No CVA Tenderness Extremities: No Edema Integumentary: No Jaundice, No Cyanosis Medical Decision Making Data Points Result Diagram: 03/05/1943703/05/19437 Item Value Date Time Hemoglobin 11.7 g/dL L 02/09/19926 Hemoglobin 9.8 g/dL L 03/04/19 110 Hemoglobin 10.4 g/dL L 03/05/19437 Neutrophils (%) (Auto) 73.9 % H 03/05/19437 Neutrophils (%) (Auto) 76.5 % H 03/04/19 110 Neutrophils (%) (Auto) 71.0 % 02/09/19926 White Blood Count 3.9 k/uL L 02/09/19926 White Blood Count 5.6 k/uL 03/04/19 110 White Blood Count 6.9 k/uL 03/05/19437 Erythrocyte Sedimentation Rate 73 mm/HOUR H 03/04/19 1106 Erythrocyte Sedimentation Rate 103 mm/HOUR H 03/05/198 Urine RBC None /HPF 03/05/19 0745 Urine WBC None /HPF 03/05/19 0745 Urine Squamous Epithelial Cells Few /LPF 03/05/19 0745 Troponin I < 0.012 ng/ml 03/05/19437 C-Reactive Protein > 9.0 mg/dl H 03/05/19437 Total Bilirubin 0.2 mg/dl 03/05/19437 Aspartate Amino Transf (AST/SGOT) 10 U/L 03/05/198 Alanine Aminotransferase (ALT/SGPT) 18 U/L 03/05/19437 Alkaline Phosphatase 48 U/L 5/10/19 0438 Creatinine 2.90 mg/dl H 02/09/19 0927 Creatinine 2.60 mg/dl H 03/04/19 1106 Creatinine 2.60 mg/dl H 03/05/19 0438 EKG / Imaging EKG Interpretation Vent. Rate : 096 BPM Atrial Rate : 096 BPM P-R Int : 194 ms QRS Dur : 088 ms QT Int : 352 ms P-R-T Axes : -18 071 014 degrees QTc Int : 444 ms Normal sinus rhythm Normal ECG When compared with ECG of 18-NOV-2013 07:41, Vent. rate has increased BY 41 BPM Confirmed by Emre Scherer ([id number]) on 03/05/2019 7:49:[address] of Chest/Abd/Pelvis - There is a large mass-like opacity in the right upper lobe, compatible with pneumonia. No additional pulmonary parenchymal opacities or nodules are identified. There is minimal fluid in the right pleural space. There is now evidence of moderate right hydroureteronephrosis, of indeterminant etiology. No obstructing calculus or mass is clearly identified. Urologic consultation is recommended. The evaluation of the abdomen and pelvis is otherwise unchanged. CXR - 1. Unchanged, ill-defined rounded opacity in the right upper lobe, new from August 2018. Findings may be due to pneumonia, but follow-up chest x-ray to ensure clearing is recommended. Assessment and Plan Problems: (1) Pneumonia Status: Acute Assessment & Plan: He presented a with a week of a cough and about 24 hours of hypoxia prior to admission. He was found to have a mass-like opacity in the RUL seen on CXR and CT. He has been started on Ceftriaxone and Azithromycin. Afebrile, BP/P stable. Requiring 2L of O2. (2) Hydronephrosis Status: Acute Assessment & Plan: Etiology unclear. Moderate and on right. Dr. Verdugo has placed a Kendall catheter. If that doesn't improve the hydronephrosis, then the patient will need an operation to place a stent. Renal US later today. Repeat BMP is pending. (3) Renal failure (ARF), acute on chronic Status: Acute Assessment & Plan: Secondary to hydronephrosis and exacerbated by having only one function kidney. See above. 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 Patient is s/p 4 cycles of BEP from to . Last Edited By: Josefina Rivers on Sep 09, 2014 13:28 Status: Acute (5) Down syndrome Status: Chronic Copies to: MOUNA LEAVITT MD; ADRIANA KAUR DO ; Venous Thromboembolism Antithrombotics Is Pt On Any Antithrombotics?: No Exam Sepsis Risk: Possible Sepsis Risk DESI ARAUJO MD March 05, 2019 13:41
[2019-03-05] MEDS: ACETAMINOPHEN 500 MG TAB PO PRN (13:47)
--- NOTE | 2019-03-05 15:00 | RADIOLOGY IMAGING REPORT ---
[place] [facility] [place] NAME: Robel Cason : 1980 MR: [id number] V: [id number] EXAM DATE: ORDERING PHYSICIAN: DESI ARAUJO TECHNOLOGIST: Location: [facility] Patient: Robel Cason : 1980 Visit/Account:[id number] Date of Sevice: 03/05/2019 KIDNEYS COMPARISON: Renal sonogram dated November 12, 2016. Additional pertinent history: Right-sided hydronephrosis. FINDINGS: Right kidney: Right kidney is echogenic with thinning of the renal cortex. Moderate right-sided hydr onephrosis new since previous exam.. The right kidney measures 11.0 cm in length. Left kidney: Continued severe thinning of the cortex of the left kidney with continued severe left-si ded hydronephrosis. TThe left kidney measures 12.8 cm in length. Urinary bladder: Decompressed with a Kendall catheter in place.. Ureteral jets: Not identified.. Retroperitoneum: Negative. Abdominal aorta and IVC: Patent. IMPRESSION: 1. Interval development of moderate-sized right-sided hydronephrosis. 2. Continued severe left-sided hydronephrosis with loss of normal renal parenchyma involving the lef t kidney. Report Dictated By: Bradley Man MD at 03/05/2019 2:54 PM Report E-Signed By: Bradley Man MD at 03/05/2019 2:56 PM WSN:[email or web address]
[2019-03-05] MEDS ORDERED: FAMOTIDINE(*) 20MG/50ML PREMIX 50 ML IVPB ONE (15:35)
[2019-03-05] MEDS ORDERED: NORMOSOL R SOLN(*) 1000 ML BAG 1,000 ML IV ONE (15:35)
--- NOTE | 2019-03-05 16:16 | CONSULTATION ---
EVENT DATE: March 05, 2019 REASON FOR CONSULTATION Right hydroureteronephrosis. HISTORY OF PRESENT ILLNESS Patient is a 38-year-old white male with a history of Down syndrome and history of left stage IIIB pure seminoma in 2008 with chronic renal insufficiency from a left nonfunctioning kidney, which is secondary to retroperitoneal fibrosis following chemotherapy of metastatic disease. He now presents with shortness of breath to the Emergency Room. A CT scan was obtained, which showed what appeared to be a large area of consolidation in the right lung, consistent with pneumonia. He was also noted to have new right hydroureteronephrosis down through the bladder. There was no evidence of intramural calcification or other lesions on this noncontrast study and no adenopathy or other evidence of recurrent disease. His creatinine on evaluation was 2.6. Of note, he had seen the nurse practitioner in the [facility] on the 09 of February and was noted to have a creatinine of 2.9. His baseline creatinine has been approximately 1.5 for the past several years. His last abdominal imaging test was a CT scan performed in May of 2017, which was normal. His other history is significant for having a distal urethral stricture which was first encountered at his original presentation in 2008, and he underwent a dilation for this. His last cystoscopic exam several years ago was normal without evidence of significant narrowing. Robel is without specific abdominal flank pain today and states he has had no change in his voiding pattern. He also denies any hematuria or dysuria. PAST MEDICAL HISTORY 1. Down syndrome. 2. Hypothyroidism. 3. Obesity. 4. Obstructive sleep apnea. 5. Gastroesophageal reflux disease. 6. Left testis pure seminoma stage IIIB, status post cisplatin-based chemotherapy 2008. 7. 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 8. Depression. 9. Hypogonadism, status post bilateral orchiectomy. 10. History of distal urethral stricture. 11. Chronic renal insufficiency with baseline creatinine of 1.5. 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 PAST SURGICAL HISTORY 1. Left radical orchiectomy 2008. 2. Left double-J stent. 3. Left stent replacement. 4. Left ureteral dilation. 5. Right simple inguinal orchiectomy secondary to undescended testis October 2013. MEDICATIONS As per medication list. SOCIAL HISTORY Patient is a client of [employer] and denies tobacco or ethanol use. REVIEW OF SYSTEMS Patient is without chest pain, productive cough, fever, chills, gross hematuria, flank pain, abdominal pain, or change in voiding. PHYSICAL EXAMINATION GENERAL: Patient is a middle-age, obese male with Down facies with no evidence of distress. CHEST: Clear to auscultation on the left with diminished breath sounds and mild crackles on the right. ABDOMEN: Obese, soft. Unable to palpate any masses. He has no peritoneal signs. BACK: Normal, without CVAT. GENITOURINARY: He has buried penis, but when retracted, it appears normal. His meatus is normal in size and caliber. He is status post bilateral orchiectomy with no testes or lesions of the scrotum or inguinal canals. EXTREMITIES: Without clubbing, cyanosis, or edema. NEUROLOGIC: Nonfocal. IMPRESSION A 38-year-old male with Down syndrome with a 10-year history of left stage IIIB seminoma, who is currently without evidence of disease. He has a chronic nonfunctioning left kidney secondary to extrinsic compression from fibrosis after chemotherapy. He also has a history of a distal urethral stricture, which in the past several times on evaluation has been open without evidence of disease or recurrence. The patient's baseline creatinine is 1.5 and is now noted to be elevated at 2.6. He has new right hydroureteronephrosis down to the bladder. There is no evidence of external compression or intrinsic other lesions. He has no calcification which would be consistent with a kidney stone. His bladder was moderately distended on exam with approximately 400 mL. However, this was not a significant change from his prior studies. It is unclear the exact etiology of his new hydronephrosis with increasing creatinine. This process appears to be going on at least for the past four to six weeks given his creatinine three weeks ago. RECOMMENDATIONS I was sent to place a Kendall catheter in the Emergency Room to rule out any significant distal or urethral stricture disease and will see if his hydronephrosis improves. I will plan to recheck a creatinine and a renal ultrasound after Kendall catheter placement and will check a resisted index. If the hydronephrosis has not improved, or the resistance index is consistent with obstruction, will likely perform anesthetic cystoscopy with right retrograde pyelogram and ureteral stent placement. DARRELL
--- NOTE | 2019-03-05 16:33 | OPERATIVE REPORT 1 ---
EVENT DATE: March 05, 2019 SURGEON: Alexandr Verdugo MD ANESTHESIOLOGIST: None. ANESTHESIA: Local anesthetic with lidocaine jelly. PREOPERATIVE DIAGNOSES 1. Right hydroureteronephrosis. 2. History of distal urethral stricture. POSTOPERATIVE DIAGNOSES 1. Right hydroureteronephrosis. 2. History of distal urethral stricture. PROCEDURE PERFORMED Urethral Kendall catheter placement. FINDINGS Normal Kendall catheter placement without urethral resistance. DRAINS 16-American Silastic Kendall catheter to gravity drainage. COMPLICATIONS None. CONDITION Patient is stable at the conclusion of the procedure. STATEMENT OF MEDICAL NECESSITY Robel is a 38-year-old white male with Down syndrome who is 10 years status post left pure seminoma stage IIIB cancer, status post cisplatin chemotherapy, with resulting left nonfunctioning kidney secondary to extrinsic compression from ureteral fibrosis after chem, who presented to the Emergency Room with shortness of breath. He was noted to have an elevated creatinine of 2.6. CT showed right hydroureteronephrosis down to the bladder. Given his history of distal stricture and new hydronephrosis with renal insufficiency, will place a Kendall catheter to 1) rule out any significant ureteral obstruction, 2) provide maximum drainage in hope of relieving some of his hydronephrosis and renal insufficiency. DESCRIPTION OF PROCEDURE PERFORMED Procedure was performed in the Emergency Room treatment area. The patient was placed supine on the hospital bed. He was prepped and draped sterilely. His meatus appeared to be normal size. I introduced some lidocaine jelly into the urethra. I then placed a 16-American Silastic catheter in the urethra. It advanced easily without any evidence of obstruction or resistance. Upon entering the bladder. he had clear drainage of urine return. The balloon was inflated with 10 mL of water. It was placed to gravity drainage. He had approximately 400 mL of clear yellow urine return. The patient was stable at the conclusion of the procedure. PLAN The plan will be to keep the Kendall catheter to drainage. We will repeat his creatinine and perform a renal ultrasound later today. If his creatinine is not improved, and the ultrasound also is no better with elevated resistive index, he will likely need anesthetic cystoscopy with a retrograde and stent placement. [facility]
[2019-03-05] MEDS ORDERED: PROPOFOL EMUL(*) 10MG/ML 20 ML 20 ML ONE (17:06)
[2019-03-05] MEDS ORDERED: LIDOCAINE MPF 1% 5 ML VIAL ONE (17:06)
[2019-03-05] MEDS ORDERED: fentaNYL CITR 100 MCG/2 ML AMP ONE (17:07)
[2019-03-05] MEDS ORDERED: KETAMINE HCL 500 MG/10 ML VIAL ONE (17:24)
[2019-03-05] MEDS ORDERED: IOPAMIDOL-200 50 ML VIAL IS ONE (17:46)
[2019-03-05] MEDS ORDERED: BELLADONNA ALK/OPIUM 60MG SUPP PR ONE (17:46)
[2019-03-05] MEDS ORDERED: ePHEDrine 25 MG/5 ML DISP.SYR IVP ONE (17:50)
[2019-03-05] MEDS ORDERED: ONDANSETRON 4 MG/2 ML VIAL ONE (17:54)
[2019-03-05] MEDS ORDERED: VASOPRESSIN 20 UNIT/ML VIAL ONE (18:17)
--- NOTE | 2019-03-05 19:11 | RADIOLOGY IMAGING REPORT ---
FACILITY: [facility] [place] PATIENT NAME: Robel Cason : 1980 MR: [id number] V: [id number] EXAM DATE: ORDERING PHYSICIAN: TITA MURPHY TECHNOLOGIST: Location: [facility] [place] Patient: Robel Cason : 1980 Visit/Account:[id number] Date of Sevice: 03/05/2019 RETROGRADE PYELOGRAM INDICATION: Stent placement COMPARISON: None available FINDINGS: Fluoroscopic images of the abdomen and pelvis show initial opacification of the right renal collectin g system which also shows mild dilatation of the right renal collecting system. There is subsequent placement of a right-sided double-J ureteral stent as well. Correlate with findings at time of imagi ng. IMPRESSION: Fluoroscopic images from placement of a right double-J ureteral stent as above. Report Dictated By: Karthikeyan Steward MD at 03/05/2019 7:05 PM Report E-Signed By: Karthikeyan Steward MD at 03/05/2019 7:07 PM WSN:[email or web address]
[2019-03-05] MEDS: ARIPiprazole 10 MG TAB PO SCH (20:49)
[2019-03-05] MEDS: CETIRIZINE HCL 10 MG TAB PO SCH (20:49)
[2019-03-05] MEDS: OXYBUTYNIN CHL XL 5 MG TABCR PO SCH (20:49)
--- NOTE | 2019-03-05 22:14 | OPERATIVE REPORT 1 ---
EVENT DATE: March 05, 2019 SURGEON: Alexandr Verdugo MD ANESTHESIOLOGIST: Karthikeyan García MD ANESTHESIA: General anesthetic. PREOPERATIVE DIAGNOSES 1. Right hydroureteronephrosis down to bladder. 2. Renal insufficiency. POSTOPERATIVE DIAGNOSES 1. Right hydroureteronephrosis down to bladder. 2. Renal insufficiency. PROCEDURES PERFORMED 1. Distal urethral calibration to 24-Finnish. 2. Anesthetic cystoscopy. 3. Right retrograde pyelogram. 4. Right internal double-J ureteral stent placement. 5. Bimanual exam under anesthesia. ESTIMATED BLOOD LOSS Less than 5 mL. INTRAVENOUS FLUIDS Crystalloids. DRAINS 1. A 6 x 25 cm Percuflex Plus stent on right. 2. A 16-Finnish Silastic Kendall catheter. PATHOLOGY None. COMPLICATIONS None. FINDINGS 1. No significant urethral stricture disease. 2. Mildly dilated right ureter with adequate drainage on delayed films. CONDITION Patient taken to recovery room awake, in stable condition. STATEMENT OF MEDICAL NECESSITY Patient is a 38-year-old white male with Down syndrome who presented to the Emergency Room with shortness of breath. He was found to have a right pneumonia. In addition, his creatinine was elevated up to 2.6 from his baseline of 1.5. A CT scan performed showed new hydroureteronephrosis down to the level of the bladder. This was not present on his last scan, which was May 2017. His tumor markers were recently normal. He had no evidence of metastatic disease on his CT scan. It was unclear why he had this new dilation with increase in his creatinine. A Kendall catheter was placed in the Emergency Room upon arrival without difficulty. Followup creatinine and renal ultrasound were unchanged. His resistive index was 0.8. Given these findings, he is now being brought to the operating room for planned anesthetic cystoscopy, retrograde, and stent placement as indicated. DESCRIPTION OF PROCEDURE PERFORMED Patient was brought to the operating room. After general anesthetic was attained, he was placed in the dorsal lithotomy position and prepped and draped in the usual sterile manner. First, his distal urethra was calibrated with the male curved sounds starting at 18-Finnish, proceeding out to 24. There was no significant resistance out to 24-Finnish with dilation to the mid pendulous urethra. At this point, the 24-Finnish Quintero cystoscope was placed under direct vision using a 30-degree lens. His urethra appeared normal. He did have one to two small polypoid lesions in the bulb. His prostatic urethra was opened with a small prostate. His bladder neck was widely open. Upon entering his bladder, he was noted to have some moderate inflammatory changes with what appeared to be some mucosal hemorrhage on the posterior lyle and floor, consistent with recent Kendall catheter placement. His left ureteral orifice was horseshoe in appearance and widely open. The right was on the respective felicia-trigone. There were no masses or other lesions in the periureteral area. At this point, a retrograde pyelogram was performed using a 6-Finnish open-ended access catheter which advanced easily just inside the ureter. Contrast material 7 mL was injected, and fluoroscopic images were obtained. It appeared the intramural portion of the ureter was mildly narrow compared to the more proximal portion, which filled easily up to the renal pelvis. At this point, the access catheter was removed, and the ureteral orifice was visualized. He was noted to have what appeared to be excellent efflux of the contrast material after approximately 30 seconds. On delayed imaging, he had good drainage on that size. On primary intraoperative interpretation, I would say that this retrograde pyelogram is normal. It was unclear as to the exact etiology of this dilation and whether this was secondary to some type of intrinsic ureteral issue versus some underlying bladder dysfunction versus a high-pressure cyst. At this point with his ongoing pneumonia and other acute issues, it was felt best to maximally drain this system until he recovers from this and then have him return to the operating room for another evaluation with a ureteroscopy. Therefore, the access catheter was again used, and this a 0.035 wire was advanced up the ureter without resistance. The access catheter was removed, and the wire was used to place a 6-Finnish x 25 cm Percuflex Plus stent. The stent advanced easily up over the wire. The wire was removed. It was noted to have good curling in the renal pelvis by fluoroscopy and good curling in the bladder by direct vision. At this point, the cystoscope was removed. A 16-Finnish Kendall catheter was placed, and the balloon was inflated. A bimanual exam was performed. He had normal sphincter tone and an empty vault. His prostate was small and flat. I could not palpate any masses or other anomalies by bimanual exam. It appeared that his bladder was not fixed in place, although the exam was somewhat limited to patient's body habitus. At the conclusion of the procedure, the patient was awakened in the operating room and taken to the recovery area in stable condition. PLAN We will have the patient be admitted back to the floor. We will continue his Kendall catheter and ureteral stent for maximal drainage. We will follow up with a creatinine in the morning. After he recovers from this current episode of pneumonia, he will likely return to the operating room to remove the stent and perform ureteroscopy for further evaluation. DARRELL
[2019-03-06] VITALS: BP 71/42
[2019-03-06 01:00] VITALS: BP 91/55
[2019-03-06] MEDS ORDERED: BELLADONNA ALK/OPIUM 60MG SUPP PR PRN (02:00)
[2019-03-06 05:58] LABS: PLATELET COUNT, AUTOMATED 287 K/uL (150-450)
[2019-03-06] MEDS: LEVOTHYROXINE SOD 0.175 MG TAB PO SCH (06:03)
[2019-03-06 07:02] VITALS: BP 91/51
[2019-03-06 08:40] VITALS: Ht 154.9 cm; Wt 123.4 kg
--- NOTE | 2019-03-06 09:15 | Antimicrobial Stewardship ---
Antimicrobial Time Out Antimicrobial Stewardship Service: Hospitalist, Other Indications: UTI Antimicrobial Used AZITHROMYCIN 500MG AND CEFTRIAXONE 2G Start Date: March 05, 2019 Culture Results: No Eligible for PO Conversion Eligable for PO Conversion: Yes Reviewed with Provider Reviewed w/ Provider on Rounds: No Comments Comments Patient admitted for pneumonia and UTI. Started on ceftriaxone 2g and azith 500mg qday. Consult and procedure with urology for stent. Continue azith for 3 days and continue Ceftriaxone pending culture results from [facility]. BALWINDER WEI March 06, 2019 09:15
[2019-03-06] MEDS: cefTRIAXone 2 GM VIAL IVP SCH (10:03)
[2019-03-06] MEDS: AZITHROMYCIN(*) 500 MG 500 MG in NS(*) 0.9% 250 ML BAG 250 ML IVPB SCH (10:03)
[2019-03-06] MEDS: VENLAFAXINE XR 75 MG CAPCR PO SCH (10:04)
[2019-03-06 11:27] VITALS: BP 88/57
[2019-03-06] MEDS: ACETAMINOPHEN 500 MG TAB PO PRN ×2 (11:36→19:29)
--- NOTE | 2019-03-06 14:05 | Hospitalist Progress Note ---
Subjective Progress Notes Subjective 38M admitted for renal obstruction, pneumonia. MISA overnight, tolerated procedure well. Physical Exam Vital Signs Date Time Temp Pulse Resp B/P (MAP) Pulse Ox O2 Delivery O2 Flow Rate FiO2 03/06/19 11:27 98.1 76 20 88/57 (67) 93 Nasal Cannula 1.0 Intake and Output 03/06/19 07:00 Intake Total 1595 ml Output Total 5450 ml Balance -3855 ml IV Total 1595 ml Output Urine Total 5450 ml # Bowel Movements 2 General Appearance: Alert, Awake, No Acute Distress Neuro: No Gross deficits Cardiovascular: Normal Rhythm & Peripheral Pulses Respiratory: No Respiratory Distress Integumentary: Skin Intact without Lesion / Mass Result Diagram: 03/06/1952703/06/19527 Assessment and Plan Problems: (1) Pneumonia Status: Acute Assessment & Plan: He presented a with a week of a cough and about 24 hours of hypoxia prior to admission. He was found to have a mass-like opacity in the RUL seen on CXR and CT. He has been started on Ceftriaxone and Azithromycin. Afebrile, BP/P stable. Requiring 1-2L of O2. (2) Hydronephrosis Status: Acute Assessment & Plan: Etiology unclear. Moderate and on right. Dr. Verdugo has placed a Kendall catheter and stent. (3) Renal failure (ARF), acute on chronic Status: Acute Assessment & Plan: Secondary to hydronephrosis and exacerbated by having only one function kidney. Cr stable, mild post obstructive diuresis. 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 Patient is s/p 4 cycles of BEP from to . Last Edited By: Josefina Rivers on Sep 09, 2014 13:28 Status: Acute (5) Down syndrome Status: Chronic Exam Sepsis Risk: No Definite Risk BRADLEY RE TORRE DO March 06, 2019 14:05
[2019-03-06] MEDS: NS(*) 0.9% 1000 ML BAG 1,000 ML IV PRN (16:56)
[2019-03-06 19:19] VITALS: BP 113/68
[2019-03-06] MEDS: CETIRIZINE HCL 10 MG TAB PO SCH (20:31)
[2019-03-06] MEDS: ARIPiprazole 10 MG TAB PO SCH (20:31)
[2019-03-06] MEDS: OXYBUTYNIN CHL XL 5 MG TABCR PO SCH (20:31)
[2019-03-07 00:52] VITALS: BP 132/78
[2019-03-07] MEDS: NS(*) 0.9% 1000 ML BAG 1,000 ML IV PRN (01:31)
[2019-03-07] MEDS: LEVOTHYROXINE SOD 0.175 MG TAB PO SCH (05:22)
[2019-03-07 07:03] VITALS: BP 114/69
--- NOTE | 2019-03-07 08:21 | Hospitalist Progress Note ---
Subjective Progress Notes Subjective 38M admitted for PNA and urinary obstruction. Large urine volume appears to be post obstructive diuresis. Patient Complains of: Gastrointestinal: No Nausea, No Vomiting Physical Exam Vital Signs Date Time Temp Pulse Resp B/P (MAP) Pulse Ox O2 Delivery O2 Flow Rate FiO2 03/07/19 07:03 99.0 60 16 114/69 (84) 92 Room Air 03/06/19 19:30 0.5 Intake and Output 03/07/19 07:00 Intake Total 5338 ml Output Total 7690 ml Balance -2352 ml Intake Oral 3000 ml IV Total 2248 ml Other 90 ml Output Urine Total 7690 ml General Appearance: Alert, Awake, No Acute Distress, Afebrile Neuro: No Gross deficits Cardiovascular: Normal Rhythm & Peripheral Pulses Respiratory: No Respiratory Distress GI: Soft and Non-Tender : Normal (+ Kendall) Musculoskeletal: No Weakness/Pain Extremities: Soft and Non Tender, Warm, Pulses, Perfused Result Diagram: 03/06/1928 03/07/19520 Assessment and Plan Problems: (1) Pneumonia Status: Acute Assessment & Plan: He presented a with a week of a cough and about 24 hours of hypoxia prior to admission. He was found to have a mass-like opacity in the RUL seen on CXR and CT. He has been started on Ceftriaxone and Azithromycin. Afebrile, BP/P stable. (2) Hydronephrosis Status: Acute Assessment & Plan: Etiology unclear. Moderate and on right. Dr. Verdugo has placed a Kendall catheter and stent. Post obstructive diuresis, will adjust fluids accordingly. (3) Renal failure (ARF), acute on chronic Status: Acute Assessment & Plan: Secondary to hydronephrosis and exacerbated by having only one function kidney. Cr stable, appears will be slow to resolve. 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 Patient is s/p 4 cycles of BEP from to . Last Edited By: Josefina Rivers on Sep 09, 2014 13:28 Status: Acute (5) Down syndrome Status: Chronic Exam Sepsis Risk: No Definite Risk BRADLEY RE TORRE DO March 07, 2019 08:21
--- NOTE | 2019-03-07 09:23 | Medical Nutrition Therapy ---
Nutrition Anthropometrics Height (Inches): 61.00 Height (Calculated Centimeters: 154.400229 Weight (Pounds): 279 Weight (Calculated Kilograms): 126.779 Henry Nutrition Score: Excellent Henry Nutrition Risk Score: 20 Dietary Referral Nutrition Risk Factors: Nutrition Risk Comment: Physical Findings Physical Appearance: Morbidly Obese 40+ Skin Appearance Skin Appearance: Edema Edema Location Modifier: Both Edema Location: Foot Type of Edema: Degree of Edema: 1+ Gastrointestinal Symptoms GI Symtoms: Tube Present: Bowel Sounds: Recent Bowel Pattern: Stool Characteristics: Nutritional Diagnosis Nutritional Risk Acuity 1: Acute/ES Renal Nutritional Risk Acuity 3: Cancer, Morbid Obesity Past Medical History: HALLIE, malignant neoplasm of left testis, Down Syndrome Nutritional Acuity: 1-High Nutrition Diagnosis: Over-weight/Obesity Nutrition Etiology: Excesssive Nutr. Intake Nutrition Problem/Etiology/Sym: Overweight/obesity as related to excessive nutr. intake as evidenced by BMI of 53. Energy Requirement: 2719 Adjusted Energy Requirement Re: 2219 (-500kcal/day for 1# wt loss per week) Protein Requirement: 102 (0.8 g protein/kg) Fluid Requirement: 2219 (1ml/kcal) Nutrition Intervention: Incr diet as tolerated Additional Diet Restrictions: OFFER SUPPLEMENT WHEN ON MONIKA Nutrition Monitoring & Eval Nutrition Goals: Eat 50-100% Meal Nutrition Follow-Up: Good Intake Nutrition Monitoring: Pt consuming 75-100% of meals. RD Patient Assessment Time: [address] Assessment Type: RD Assessment Patient Nutrition Acuity: 1-High Follow Up Date: March 09, 2019 Nutritional Comment: Pt admitted with cough. Hx of HALLIE, malignant neoplam of left testis, Down Syndrome. Dx with pneumonia, hydronephritis. Pt on NPO day 1. Pt C-reactive protein is elevated at 9.0. Albumin of 2.8 and total protein of 5.6 are decreased. BUN improved, but elevated att 66 down to 53. Creatinine os 2.60 increased to 2.70, both are elevated. Progress diet as tolerated and offer protein supplement when MONIKA. 03/07 Pt progressed to MONIKA with 75-100% intakes. Pt has non-pitting edema in both feet. Pt BUN of 39 and creatinine of 2.60 are increased. RBC of 2.82 are decreased as are Hgb of 9.2, and Hct of 27.7. Monitor for adequate intake. -ALEXYS YOUNGBLOOD March 07, 2019 09:23
[2019-03-07] MEDS: cefTRIAXone 2 GM VIAL IVP SCH (09:44)
[2019-03-07] MEDS: VENLAFAXINE XR 75 MG CAPCR PO SCH (09:44)
[2019-03-07] MEDS: ACETAMINOPHEN 500 MG TAB PO PRN ×2 (09:44→21:15)
[2019-03-07] MEDS: LR(*) 1000 ML BAG 1,000 ML IV PRN ×4 (09:45→19:28)
[2019-03-07] MEDS: AZITHROMYCIN(*) 500 MG 500 MG in NS(*) 0.9% 250 ML BAG 250 ML IVPB SCH (09:48)
[2019-03-07] MEDS ORDERED: INFLUENZA VIRUS VAC 0.5ML SYR IM ONLY ONE (13:15)
[2019-03-07 15:21] VITALS: BP 98/53
--- NOTE | 2019-03-07 16:16 | NUR ---
Unable to tolerate monitoring. Spot check in use. Addendum: 03/07/19 at 1617 by REBECCA MCCONNELL RN Amended: Links added.
[2019-03-07 19:30] VITALS: BP 104/62
[2019-03-07] MEDS: OXYBUTYNIN CHL XL 5 MG TABCR PO SCH (21:15)
[2019-03-07] MEDS: CETIRIZINE HCL 10 MG TAB PO SCH (21:15)
[2019-03-07] MEDS: ARIPiprazole 10 MG TAB PO SCH (21:16)
[2019-03-07] MEDS ORDERED: LR(*) 1000 ML BAG 1,000 ML IV PRN (21:20)
[2019-03-07] MEDS: NS 0.45%(*) 1000 ML BAG 1,000 ML IV PRN (22:31)
[2019-03-08] MEDS: NS 0.45%(*) 1000 ML BAG 1,000 ML IV PRN ×2 (01:29→06:08)
[2019-03-08 04:30] VITALS: BP 125/85
[2019-03-08] MEDS: ACETAMINOPHEN 500 MG TAB PO PRN ×2 (05:49→16:32)
[2019-03-08] MEDS: LEVOTHYROXINE SOD 0.175 MG TAB PO SCH (05:49)
[2019-03-08] MEDS ORDERED: NS 0.45%(*) 1000 ML BAG 1,000 ML IV PRN (08:09)
[2019-03-08] MEDS: VENLAFAXINE XR 75 MG CAPCR PO SCH (08:25)
[2019-03-08] MEDS: cefTRIAXone 2 GM VIAL IVP SCH (08:25)
[2019-03-08 09:30] VITALS: BP 97/55
[2019-03-08] MEDS: AZITHROMYCIN(*) 500 MG 500 MG in NS(*) 0.9% 250 ML BAG 250 ML IVPB SCH (09:50)
--- NOTE | 2019-03-08 10:03 | Hospitalist Progress Note ---
Subjective Progress Notes Subjective He was admitted with pneumonia and acute kidney injury from obstruction. He has no complaints this morning. He had no acute events overnight. Physical Exam Vital Signs Date Time Temp Pulse Resp B/P (MAP) Pulse Ox O2 Delivery O2 Flow Rate FiO2 03/08/19 09:30 98.0 99 16 97/55 (69) 92 Room Air 03/06/19 19:30 0.5 Intake and Output 03/08/19 07:00 Intake Total 94317 ml Output Total 65680 ml Balance 1852 ml Intake Oral 6277 ml IV Total 6265 ml Output Urine Total 52286 ml # Bowel Movements 1 General Appearance: Alert, Awake, No Acute Distress, Afebrile Cardiovascular: Regular Rate and Rhythm Respiratory: No Respiratory Distress, Clear to Auscultation, Other (cough present ) GI: Soft and Non-Tender Psych: Alert & Oriented X3, Appropriate Mood & Affect Result Diagram: 03/06/1928 03/08/19 0543 Assessment and Plan Problems: (1) Pneumonia Status: Acute Assessment & Plan: He presented a with a week of a cough and about 24 hours of hypoxia prior to admission. He was found to have a mass-like opacity in the RUL seen on CXR and CT. He has been started on Ceftriaxone and Azithromycin. Afebrile, BP/P stable. (2) Hydronephrosis Status: Acute Assessment & Plan: Etiology unclear. Moderate and on right. Dr. Verdugo has placed a Kendall catheter and stent. Post obstructive diuresis, will adjust fluids accordingly. (3) Renal failure (ARF), acute on chronic Status: Acute Assessment & Plan: Secondary to hydronephrosis and exacerbated by having only one function kidney. Cr stable, appears will be slow to resolve. 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 Patient is s/p 4 cycles of BEP from to . 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
--- NOTE | 2019-03-08 10:04 | NUR ---
Pt requested pulse ox be removed from finger. Refused monitoring. Addendum: 03/08/19 at 1005 by REBECCA MCCONNELL RN Amended: Links added.
[2019-03-08 12:56] VITALS: BP 97/58
[2019-03-08 16:32] VITALS: BP 94/54
[2019-03-08] MEDS: CETIRIZINE HCL 10 MG TAB PO SCH (20:38)
[2019-03-08] MEDS: ARIPiprazole 10 MG TAB PO SCH (20:39)
[2019-03-08] MEDS: OXYBUTYNIN CHL XL 5 MG TABCR PO SCH (20:39)
[2019-03-09] MEDS: ACETAMINOPHEN 500 MG TAB PO PRN ×2 (02:47→18:36)
[2019-03-09 02:48] VITALS: BP 109/75
[2019-03-09] MEDS: LEVOTHYROXINE SOD 0.175 MG TAB PO SCH (07:37)
[2019-03-09 07:38] VITALS: BP 94/66
[2019-03-09] MEDS: VENLAFAXINE XR 75 MG CAPCR PO SCH (08:45)
[2019-03-09] MEDS: cefTRIAXone 2 GM VIAL IVP SCH (08:45)
[2019-03-09] MEDS: AZITHROMYCIN(*) 500 MG 500 MG in NS(*) 0.9% 250 ML BAG 250 ML IVPB SCH (09:32)
[2019-03-09 11:31] VITALS: BP 98/59
[2019-03-09 15:29] VITALS: BP 116/69
--- NOTE | 2019-03-09 15:59 | Hospitalist Progress Note ---
Subjective Progress Notes Subjective 38M admitted for hydroureter, pneumonia. MISA overnight, UOP continues to be high. Patient Complains of: Gastrointestinal: No Nausea, No Vomiting Physical Exam Vital Signs Date Time Temp Pulse Resp B/P (MAP) Pulse Ox O2 Delivery O2 Flow Rate FiO2 03/09/19 15:30 90 03/09/19 15:29 98.1 87 20 116/69 (85) Room Air 03/06/19 19:30 0.5 Intake and Output 03/09/19 07:00 Intake Total 4576 ml Output Total 9950 ml Balance -5374 ml Intake Oral 3082 ml IV Total 1494 ml Output Urine Total 9950 ml # Bowel Movements 3 General Appearance: Awake, No Acute Distress, Afebrile Neuro: No Gross deficits Cardiovascular: Normal Rhythm & Peripheral Pulses Respiratory: No Respiratory Distress GI: Soft and Non-Tender : Normal (+ guo) Extremities: Soft and Non Tender, Warm, Pulses, Perfused Result Diagram: 03/06/19 0528 03/08/19 1728 Assessment and Plan Problems: (1) Pneumonia Status: Acute Assessment & Plan: He presented a with a week of a cough and about 24 hours of hypoxia prior to admission. He was found to have a mass-like opacity in the RUL seen on CXR and CT. He has been started on Ceftriaxone and Azithromycin. Afebrile, BP/P stable. (2) Hydronephrosis Status: Acute Assessment & Plan: Etiology unclear. Moderate and on right. Dr. Verdugo has placed a Guo catheter and stent. Creatinine remains stable, 24 hour urine collection and limit water intake to 2L daily to evaluate apparent polydipsia. (3) Renal failure (ARF), acute on chronic Status: Acute Assessment & Plan: Secondary to hydronephrosis and exacerbated by having only one function kidney. Cr stable, appears will be slow to resolve. 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 Patient is s/p 4 cycles of BEP from to . Last Edited By: Josefina Rivers on Sep 09, 2014 13:28 Status: Acute (5) Down syndrome Status: Chronic Exam Sepsis Risk: No Definite Risk BRADLEY RE TORRE DO March 09, 2019 15:59
--- NOTE | 2019-03-09 16:16 | Medical Nutrition Therapy ---
Nutrition Anthropometrics Height (Inches): 61.00 Height (Calculated Centimeters: 154.909610 Weight (Pounds): 282 Weight (Calculated Kilograms): 127.913 BMI: 53.3 Henry Nutrition Score: Adequate Henry Nutrition Risk Score: 20 Dietary Referral Nutrition Risk Factors: Nutrition Risk Comment: Physical Findings Physical Appearance: Morbidly Obese 40+ Skin Appearance Skin Appearance: Edema Edema Location Modifier: Edema Location: Type of Edema: Degree of Edema: Gastrointestinal Symptoms GI Symtoms: Tube Present: Bowel Sounds: Recent Bowel Pattern: Stool Characteristics: Nutrition/Food History Good Skipped Meals: No Nutritional Diagnosis Nutritional Risk Acuity 1: Acute/ES Renal Nutritional Risk Acuity 3: Cancer, Morbid Obesity Past Medical History: HALLIE, malignant neoplasm of left testis, Down Syndrome Nutritional Acuity: 1-High Nutrition Diagnosis: Over-weight/Obesity Nutrition Etiology: Excesssive Nutr. Intake Nutrition Problem/Etiology/Sym: Overweight/obesity as related to excessive nutr. intake as evidenced by BMI of 53. Adjusted Energy Requirement Re: 2219 (-500kcal/day for 1# wt loss per week) Protein Requirement: 102 (0.8 g protein/kg) Fluid Requirement: 2000 (No more than 2L) Nutrition Intervention: Incr diet as tolerated Additional Diet Restrictions: OFFER SUPPLEMENT WHEN ON MONIKA Nutrition Monitoring & Eval Nutrition Goals: Eat 75-100% Meal, Fluid Restrictions RD Patient Assessment Time: [address] Assessment Type: RD Re-Assessment Patient Nutrition Acuity: 1-High Follow Up Date: March 12, 2019 Nutritional Comment: Pt admitted with cough. Hx of HALLIE, malignant neoplam of left testis, Down Syndrome. Dx with pneumonia, hydronephritis. Pt on NPO day 1. Pt C-reactive protein is elevated at 9.0. Albumin of 2.8 and total protein of 5.6 are decreased. BUN improved, but elevated att 66 down to 53. Creatinine os 2.60 increased to 2.70, both are elevated. Progress diet as tolerated and offer protein supplement when MONIKA. 03/07 Pt progressed to MONIKA with 75-100% intakes. Pt has non-pitting edema in both feet. Pt BUN of 39 and creatinine of 2.60 are increased. RBC of 2.82 are decreased as are Hgb of 9.2, and Hct of 27.7. Monitor for adequate intake. -AKG 03/09 Pt is now on a fluid restricted diet, but is eating 100% of MONIKA meals. Pt BUN is decreasing, but is still high at 35. Pt has a high creatinine 2.3 and low Hgb 9.2 and Hct 27.7. Will continue to monitor. LIZET ABREU March 09, 2019 14:07
[2019-03-09 19:43] VITALS: BP 99/65
[2019-03-09] MEDS: OXYBUTYNIN CHL XL 5 MG TABCR PO SCH (20:14)
[2019-03-09] MEDS: ARIPiprazole 10 MG TAB PO SCH (20:14)
[2019-03-09] MEDS: CETIRIZINE HCL 10 MG TAB PO SCH (20:14)
[2019-03-10] MEDS: LEVOTHYROXINE SOD 0.175 MG TAB PO SCH (05:35)
[2019-03-10 07:29] VITALS: BP 115/64
[2019-03-10] MEDS ORDERED: AZITHROMYCIN 250 MG TAB PO SCH (09:00)
[2019-03-10] MEDS: VENLAFAXINE XR 75 MG CAPCR PO SCH (09:16)
[2019-03-10] MEDS: CEFDINIR 300 MG CAP PO SCH ×2 (09:16→20:48)
--- NOTE | 2019-03-10 13:52 | Hospitalist Progress Note ---
Subjective Progress Notes Subjective The patient is tolerating the fluid restriction and urine collection. No focal complaints. Physical Exam Vital Signs Date Time Temp Pulse Resp B/P (MAP) Pulse Ox O2 Delivery O2 Flow Rate FiO2 03/10/19 07:29 98.0 71 20 115/64 (81) 88 Room Air 03/06/19 19:30 0.5 Intake and Output 03/10/19 07:00 Intake Total 3092 ml Output Total 7250 ml Balance -4158 ml Intake Oral 2290 ml IV Total 802 ml Output Urine Total 7250 ml # Bowel Movements 2 General Appearance: Alert, Awake, No Acute Distress Respiratory: Clear to Auscultation GI: Soft and Non-Tender Result Diagram: 03/06/1952703/10/1938 Assessment and Plan Problems: (1) Pneumonia Status: Acute Assessment & Plan: He presented a with a week of a cough and about 24 hours of hypoxia prior to admission. He was found to have a mass-like opacity in the RUL seen on CXR and CT. He was started on Ceftriaxone and Azithromycin. Now on Omnicef. Afebrile, BP/P stable. (2) Hydronephrosis Status: Acute Assessment & Plan: Etiology unclear. Moderate and on right. Dr. Verdugo has placed a Kendall catheter and stent. Creatinine remains stable, 24 hour urine collection and limit water intake to 2L daily to evaluate apparent polyuria. Concerned about DI vs a primary polydipsia. BMP this afternoon to follow sodium. (3) Renal failure (ARF), acute on chronic Status: Acute Assessment & Plan: Secondary to hydronephrosis and exacerbated by having only one function kidney. However, cannot rule out a contribution from primary polydipsia vs volume depletion related to DI. Cr stable, but elevated. 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 Patient is s/p 4 cycles of BEP from to . Last Edited By: Josefina Rivers on Sep 09, 2014 13:28 Status: Acute (5) Down syndrome Status: Chronic Exam Sepsis Risk: No Definite Risk DESI ARAUJO MD March 10, 2019 13:52
[2019-03-10 15:21] VITALS: BP 106/54
[2019-03-10 19:29] VITALS: BP 95/50
[2019-03-10] MEDS: CETIRIZINE HCL 10 MG TAB PO SCH (20:48)
[2019-03-10] MEDS: OXYBUTYNIN CHL XL 5 MG TABCR PO SCH (20:48)
[2019-03-10] MEDS: ARIPiprazole 10 MG TAB PO SCH (20:48)
[2019-03-10] MEDS: ACETAMINOPHEN 500 MG TAB PO PRN (23:51)
[2019-03-11 02:07] VITALS: BP 108/66
[2019-03-11] MEDS: LEVOTHYROXINE SOD 0.175 MG TAB PO SCH (05:47)
[2019-03-11 09:20] VITALS: BP 99/58
[2019-03-11] MEDS: VENLAFAXINE XR 75 MG CAPCR PO SCH (09:23)
[2019-03-11] MEDS: CEFDINIR 300 MG CAP PO SCH ×2 (09:23→21:35)
--- NOTE | 2019-03-11 12:09 | Hospitalist Progress Note ---
Subjective Progress Notes Subjective This patient was admitted for renal failure. He had no acute issues overnight. Physical Exam Vital Signs Date Time Temp Pulse Resp B/P (MAP) Pulse Ox O2 Delivery O2 Flow Rate FiO2 03/11/19 09:20 98.4 81 20 99/58 (72) 91 Room Air Intake and Output 03/11/19 07:00 Intake Total 1974 ml Output Total 4375 ml Balance -2401 ml Intake Oral 1974 ml Output Urine Total 4375 ml # Bowel Movements 2 Cardiovascular: Regular Rate and Rhythm Respiratory: Clear to Auscultation Result Diagram: 03/11/19 0550 Assessment and Plan Problems: (1) Pneumonia Status: Acute Assessment & Plan: His CT scan showed a "mass-like" opacity in the right upper lobe. He has remained afebrile and his WBC has been normal. He was on empiric treatment with ceftriaxone and azithromycin, but is now on oral cefdinir and has completed a course of azithromycin. He will need to have a repeat CT scan to be sure this lesion has resolved. (2) Hydronephrosis Status: Acute Assessment & Plan: Dr. Verdugo has been following him for this. He plans to leave the Kendall and stent in until Friday. (3) Renal failure (ARF), acute on chronic Status: Acute Assessment & Plan: Secondary to hydronephrosis and exacerbated by having only one function kidney. However, cannot rule out a contribution from primary polydipsia vs volume depletion related to DI. Cr stable, but elevated. 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 Patient is s/p 4 cycles of BEP from to . Last Edited By: Josefina Rivers on Sep 09, 2014 13:28 Status: Acute (5) Down syndrome Status: Chronic Exam Sepsis Risk: No Definite Risk YANIV LUONG DO March 11, 2019 12:09
[2019-03-11 16:20] VITALS: BP 105/54
[2019-03-11] MEDS: ACETAMINOPHEN 500 MG TAB PO PRN (18:35)
[2019-03-11] MEDS: CETIRIZINE HCL 10 MG TAB PO SCH (21:35)
[2019-03-11] MEDS: OXYBUTYNIN CHL XL 5 MG TABCR PO SCH (21:35)
[2019-03-11] MEDS: ARIPiprazole 10 MG TAB PO SCH (21:37)
[2019-03-12 00:46] VITALS: BP 103/77
[2019-03-12] MEDS: LEVOTHYROXINE SOD 0.175 MG TAB PO SCH (05:46)
[2019-03-12 07:22] VITALS: BP 90/75
[2019-03-12] MEDS: VENLAFAXINE XR 75 MG CAPCR PO SCH (09:10)
[2019-03-12] MEDS: CEFDINIR 300 MG CAP PO SCH ×2 (09:10→20:37)
[2019-03-12] MEDS: ACETAMINOPHEN 500 MG TAB PO PRN (11:04)
--- NOTE | 2019-03-12 11:12 | Hospitalist Progress Note ---
Subjective Progress Notes Subjective He is without complaints. He denies pain. No concerns from staff. Physical Exam Vital Signs Date Time Temp Pulse Resp B/P (MAP) Pulse Ox O2 Delivery O2 Flow Rate FiO2 03/12/19 07:22 98.1 72 20 90/75 (80) 92 Room Air Intake and Output 03/12/19 07:00 Intake Total 2020 ml Output Total 3875 ml Balance -1855 ml Intake Oral 2020 ml Output Urine Total 3875 ml General Appearance: Awake, No Acute Distress Integumentary: No Jaundice, No Cyanosis Result Diagram: 03/12/19 0533 Assessment and Plan Problems: (1) Polyuria Status: Acute Assessment & Plan: Concerned about DI vs a primary polydipsia. He is on a fluid restriction of 2 liters/24 hours. Sodium remains wnl and creatinine relatively unchanged. Will tighten the fluid restriction to 1500cc today and then check urine osm/serum osm/BMP tomorrow. (2) Pneumonia Status: Acute Assessment & Plan: His CT scan showed a "mass-like" opacity in the right upper lobe. He has remained afebrile and his WBC has been normal. He was on empiric treatment with ceftriaxone and azithromycin, but is now on oral cefdinir and has completed a course of azithromycin. He will need to have a repeat CT scan or possibly a CXR to be sure this lesion has resolved. (3) Hydronephrosis Status: Acute Assessment & Plan: Dr. Verdugo has been following him for this. He plans to leave the ureteral stent in until 03/15. Kendall to come out soon after. (4) Renal failure (ARF), acute on chronic Status: Acute Assessment & Plan: Secondary to hydronephrosis and exacerbated by having only one function kidney. However, cannot rule out a contribution from primary polydipsia vs volume depletion related to DI. Cr stable, but elevated. 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 Patient is s/p 4 cycles of BEP from to . Last Edited By: Josefina Rivers on Sep 09, 2014 13:28 Status: Acute (6) Down syndrome Status: Chronic Exam Sepsis Risk: No Definite Risk DESI ARAUJO MD March 12, 2019 11:12
--- NOTE | 2019-03-12 12:55 | Medical Nutrition Therapy ---
Nutrition Anthropometrics Height (Inches): 61.00 Height (Calculated Centimeters: 154.142675 Weight (Pounds): 268 Weight (Calculated Kilograms): 121.676 BMI: 53.3 Henry Nutrition Score: Adequate Henry Nutrition Risk Score: 19 Dietary Referral Nutrition Risk Factors: Nutrition Risk Comment: Physical Findings Physical Appearance: Morbidly Obese 40+ Skin Appearance Skin Appearance: Edema Edema Location Modifier: Both Edema Location: Foot Type of Edema: Degree of Edema: 1+ Gastrointestinal Symptoms GI Symtoms: Tube Present: Bowel Sounds: Recent Bowel Pattern: Stool Characteristics: Nutritional Diagnosis Nutritional Risk Acuity 1: Acute/ES Renal Nutritional Risk Acuity 3: Cancer, Morbid Obesity Past Medical History: HALLIE, malignant neoplasm of left testis, Down Syndrome Nutritional Acuity: 1-High Nutrition Diagnosis: Over-weight/Obesity Nutrition Etiology: Excesssive Nutr. Intake Nutrition Problem/Etiology/Sym: Overweight/obesity as related to excessive nutr. intake as evidenced by BMI of 53. Adjusted Energy Requirement Re: 2219 (-500kcal/day for 1# wt loss per week) Protein Requirement: 70 (1 g protein/kg IBW) Fluid Requirement: 2000 (No more than 2L) Diet Type: Fluid Restricted Nutrition Intervention: Cont diet as ordered, Encourage intake Nutrition Monitoring & Eval Nutrition Goals: Eat 75-100% Meal, Fluid Restrictions Nutrition Follow-Up: Good Intake RD Patient Assessment Time: [address] Assessment Type: RD Re-Assessment Patient Nutrition Acuity: 1-High Follow Up Date: March 15, 2019 Nutritional Comment: Pt admitted with cough. Hx of HALLIE, malignant neoplam of left testis, Down Syndrome. Dx with pneumonia, hydronephritis. Pt on NPO day 1. Pt C-reactive protein is elevated at 9.0. Albumin of 2.8 and total protein of 5.6 are decreased. BUN improved, but elevated att 66 down to 53. Creatinine os 2.60 increased to 2.70, both are elevated. Progress diet as tolerated and offer protein supplement when MONIKA. 03/07 Pt progressed to MONIKA with 75-100% intakes. Pt has non-pitting edema in both feet. Pt BUN of 39 and creatinine of 2.60 are increased. RBC of 2.82 are decreased as are Hgb of 9.2, and Hct of 27.7. Monitor for adequate intake. -AKG 03/09 Pt is now on a fluid restricted diet, but is eating 100% of MONIKA meals. Pt BUN is decreasing, but is still high at 35. Pt has a high creatinine 2.3 and low Hgb 9.2 and Hct 27.7. Will continue to monitor. CD 03/12 Pt cont on fluid restricted diet, eatin 75-100% of meals. Will d/c nutr supplment r/t good intake and cont elevated BUN of 45 and creatinine 2.4. Alb 2.8. Wt has declined 5kg. Edema in feet have declined from 1+ to non-pitting. Will cont to monitor. SHIVA HENDERSON March 12, 2019 12:55
[2019-03-12 17:51] VITALS: BP 103/62
[2019-03-12 19:36] VITALS: BP 121/61
[2019-03-12] MEDS: ARIPiprazole 10 MG TAB PO SCH (20:37)
[2019-03-12] MEDS: OXYBUTYNIN CHL XL 5 MG TABCR PO SCH (20:38)
[2019-03-12] MEDS: CETIRIZINE HCL 10 MG TAB PO SCH (20:38)
[2019-03-13 03:40] VITALS: BP 103/49
[2019-03-13] MEDS: LEVOTHYROXINE SOD 0.175 MG TAB PO SCH (05:36)
[2019-03-13 06:22] LABS: PLATELET COUNT, AUTOMATED 332 K/uL (150-450)
[2019-03-13 07:16] VITALS: BP 91/64
--- NOTE | 2019-03-13 07:27 | Hospitalist Progress Note ---
Subjective Progress Notes Subjective Quiet night. Nurses report short episodes of sleep apnea. Denies pain. Current plan is for stent replacement on Friday with guo removal by Dr. Verdugo. Physical Exam Vital Signs Date Time Temp Pulse Resp B/P (MAP) Pulse Ox O2 Delivery O2 Flow Rate FiO2 03/13/19 07:16 97.8 69 91/64 (73) 90 Room Air 03/13/19 03:40 18 1.0 Intake and Output0 03/13/19 07:00 Intake Total 1275 ml Output Total 2870 ml Balance -1595 ml Intake Oral 1275 ml Output Urine Total 2870 ml # Bowel Movements 3 General Appearance: Alert, Awake, No Acute Distress, Afebrile Cardiovascular: Regular Rate and Rhythm, Other (Short 1/6 systiolic murmur at upper LSB) Respiratory: Clear to Auscultation GI: Soft and Non-Tender Psych: Appropriate Mood & Affect Result Diagram: 03/13/19 0537 03/13/19536 Assessment and Plan Problems: (1) Polyuria Status: Acute Assessment & Plan: Concerned about DI vs a primary polydipsia. He is on a fluid restriction of 2 liters/24 hours. Sodium remains wnl and creatinine relatively unchanged at 2.5. Will continue the fluid restriction to 1500cc and then check urine osm/serum osm/BMP tomorrow. (2) Pneumonia Status: Acute Assessment & Plan: His CT scan showed a "mass-like" opacity in the right upper lobe. He has remained afebrile and his WBC has been normal. He was on empiric treatment with ceftriaxone and azithromycin, but is now on oral cefdinir and has completed a course of azithromycin. He will need to have a repeat CT scan or possibly a CXR to be sure this lesion has resolved. (3) Hydronephrosis Status: Acute Assessment & Plan: Dr. Verdugo has been following him for this. He plans to leave the ureteral stent in until 03/15. Guo to come out soon after. (4) Renal failure (ARF), acute on chronic Status: Acute Assessment & Plan: Secondary to hydronephrosis and exacerbated by having only o ne function kidney. However, cannot rule out a contribution from primary polydipsia vs volume depletion related to DI. Cr stable, but elevated. 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 Patient is s/p 4 cycles of BEP from to . Last Edited By: Josefina Rivers on Sep 09, 2014 13:28 Status: Acute (6) Down syndrome Status: Chronic Time Spent on Plan of Care: < 30 min Exam Sepsis Risk: No Definite Risk NATTY MCADAMS MD FACP March 13, 2019 07:27
[2019-03-13] MEDS: VENLAFAXINE XR 75 MG CAPCR PO SCH (08:18)
[2019-03-13] MEDS: CEFDINIR 300 MG CAP PO SCH ×2 (08:18→22:05)
--- NOTE | 2019-03-13 08:19 | RADIOLOGY IMAGING REPORT ---
FACILITY: PATIENT NAME: Robel Cason : 1980 MR: [id number] V: [id number] EXAM DATE: ORDERING PHYSICIAN: NATTY MCADAMS TECHNOLOGIST: Location: [facility] Patient: Robel Cason : 1980 Visit/Account:[id number] Date of Sevice: 03/13/2019 Portable chest, one view. HISTORY: Follow-up pneumonia. COMPARISON: 03/05/2019. The heart is borderline enlarged. Pulmonary vessels are mildly engorged. The azygos vein is slightly distended. A rounded opacity is present in the midportion of the right lung, decreased in size compar ed to previous. Mild thickening is present along the right lung fissures, unchanged. Streaky densitie s are present in the right lung base, otherwise unchanged. The left lung is clear. The pleural surfac es are otherwise unremarkable. No acute bony abnormalities. The soft tissues are obese. IMPRESSION: Rounded opacity in the right mid lung, decreased. Consolidation in the right lung base, otherwise unchanged. Report Dictated By: Anderson Avila MD at 03/13/2019 8:09 AM Report E-Signed By: Anderson Avila MD at 03/13/2019 8:15 AM WSN:[id number]
[2019-03-13 15:38] VITALS: BP 124/91
[2019-03-13] MEDS: ARIPiprazole 10 MG TAB PO SCH (22:05)
[2019-03-13] MEDS: OXYBUTYNIN CHL XL 5 MG TABCR PO SCH (22:05)
[2019-03-13] MEDS: CETIRIZINE HCL 10 MG TAB PO SCH (22:05)
[2019-03-14 01:10] VITALS: BP 133/71
[2019-03-14] MEDS: LEVOTHYROXINE SOD 0.175 MG TAB PO SCH (06:24)
[2019-03-14 09:26] VITALS: BP 104/56
[2019-03-14] MEDS: VENLAFAXINE XR 75 MG CAPCR PO SCH (09:28)
[2019-03-14] MEDS: CEFDINIR 300 MG CAP PO SCH (09:28)
--- NOTE | 2019-03-14 10:19 | RADIOLOGY IMAGING REPORT ---
FACILITY: [facility] [place] PATIENT NAME: Robel Cason : 1980 MR: [id number] V: [id number] EXAM DATE: ORDERING PHYSICIAN: TITA MURPHY TECHNOLOGIST: Location: [facility] Patient: Robel Cason : 1980 Visit/Account:[id number] Date of Sevice: 03/14/2019 CHEST PA LAT Indication: Pre-op Comparison: Chest x-ray 03/13/2019 Findings: Lungs: There is a 4.2 cm mass in the right midlung zone, unchanged from the prior study. Left lung is clear. Mediastinum/pulmonary vasculature: Heart size and pulmonary vasculature are normal. Bones/soft tissues: There is a anterior superior endplate compression fracture in the upper lumbar sp ine, unchanged from the prior study. IMPRESSION: 1. 4.2 cm mass right midlung zone, unchanged from 03/13/2019 and unchanged from 03/05/2019. Differentia l diagnosis includes malignancy and pneumonia. 2. Clear left lung. Report Dictated By: Abdulaziz Fitzpatrick at 03/14/2019 10:11 AM Report E-Signed By: Abdulaziz Fitzpatrick at 03/14/2019 10:14 AM WSN:[id number]
--- NOTE | 2019-03-14 14:32 | Hospitalist Progress Note ---
Subjective Progress Notes Subjective Patient walking in the halls. Sad because he wants to go home. Physical Exam Vital Signs Date Time Temp Pulse Resp B/P (MAP) Pulse Ox O2 Delivery O2 Flow Rate FiO2 03/14/19 09:26 98.0 68 16 104/56 (72) 94 Room Air 03/13/19 03:40 1.0 Intake and Output 03/14/19 07:00 Intake Total 1308 ml Output Total 2630 ml Balance -1322 ml Intake Oral 1308 ml Output Urine Total 2630 ml General Appearance: Alert, Awake, No Acute Distress Cardiovascular: Regular Rate and Rhythm Respiratory: Clear to Auscultation GI: Soft and Non-Tender Extremities: Warm, Perfused Psych: Other (Sad, crying. Wants to go home.) Result Diagram: 03/13/1937 03/14/19510 Assessment and Plan Problems: (1) Polyuria Status: Acute Assessment & Plan: Concerned about DI vs a primary polydipsia. He is on a fluid restriction of 2 liters/24 hours. Sodium remains wnl and creatinine relatively unchanged at 2.5. Will continue the fluid restriction to 1500cc. Urine osmolality increased to 395. (2) Pneumonia Status: Acute Assessment & Plan: His CT scan showed a "mass-like" opacity in the right upper lobe. He has remained afebrile and his WBC has been normal. He was on empiric treatment with ceftriaxone and azithromycin, but is now on oral cefdinir and has completed a course of azithromycin. He will need to have a repeat CT scan or possibly a CXR to be sure this lesion has resolved. (3) Hydronephrosis Status: Acute Assessment & Plan: Dr. Verdugo has been following him for this. He plans to leave the ureteral stent in until 03/15. Kendall to come out soon after. (4) Renal failure (ARF), acute on chronic Status: Acute Assessment & Plan: Secondary to hydronephrosis and exacerbated by having only one functioning kidney. However, cannot rule out a contribution from primary polydipsia vs volume depletion related to DI. Cr stable, but elevated. 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 Patient is s/p 4 cycles of BEP from to . Last Edited By: Josefina Rivers on Sep 09, 2014 13:28 Status: Acute (6) Down syndrome Status: Chronic Time Spent on Plan of Care: < 30 min Exam Sepsis Risk: No Definite Risk JIMI AGUSTIN MD March 14, 2019 14:32
[2019-03-14 19:56] VITALS: BP 118/66
[2019-03-14] MEDS ORDERED: CEFDINIR 300 MG CAP PO SCH (21:00)
[2019-03-14] MEDS: OXYBUTYNIN CHL XL 5 MG TABCR PO SCH (21:11)
[2019-03-14] MEDS: ACETAMINOPHEN 500 MG TAB PO PRN (21:11)
[2019-03-14] MEDS: CETIRIZINE HCL 10 MG TAB PO SCH (21:11)
[2019-03-14] MEDS: ARIPiprazole 10 MG TAB PO SCH (21:11)
[2019-03-15] VITALS (10 sets, daily range): BP systolic 94–120; BP diastolic 53–78
[2019-03-15] MEDS ORDERED: NS 0.45%(*) 1000 ML BAG 1,000 ML IV PRN (00:01)
[2019-03-15] MEDS: LEVOTHYROXINE SOD 0.175 MG TAB PO SCH (05:36)
[2019-03-15] MEDS ORDERED: FAMOTIDINE(*) 20MG/50ML PREMIX 50 ML IVPB ONE (07:55)
[2019-03-15] MEDS ORDERED: NORMOSOL R SOLN(*) 1000 ML BAG 1,000 ML IV PRN (07:55)
[2019-03-15] MEDS ORDERED: fentaNYL CITR 100 MCG/2 ML AMP ONE (08:40)
[2019-03-15] MEDS ORDERED: KETAMINE HCL 200 MG/20 ML MDV ONE (08:41)
[2019-03-15] MEDS ORDERED: PROPOFOL EMUL(*) 10MG/ML 20 ML 20 ML ONE (08:42)
[2019-03-15] MEDS ORDERED: LIDOCAINE 2% IV 100 MG/5ML SYR ONE (08:42)
[2019-03-15] MEDS: VENLAFAXINE XR 75 MG CAPCR PO SCH (09:00)
--- NOTE | 2019-03-15 09:17 | NUR ---
0910 pt walking the halls. linda from [facility]. pt placed into wheelchair and taken to preop. pt answering questions and following instructions Addendum: 03/15/19 at 0928 by JACINDA GAN RN 914 vs taken, pt placed gown on and is now watching tv 926 pt resting in bed watching tv. iv flushed, red at iv site, iv running
[2019-03-15] MEDS ORDERED: IOPAMIDOL-200 50 ML VIAL IS ONE (09:55)
[2019-03-15] MEDS ORDERED: BELLADONNA ALK/OPIUM 60MG SUPP PR ONE (09:55)
[2019-03-15] MEDS ORDERED: DEXAMETHASONE SOD 4 MG/ML VIAL ONE (10:10)
[2019-03-15] MEDS ORDERED: ceFAZolin 1 GM VIAL ONE (10:17)
--- NOTE | 2019-03-15 10:57 | Hospitalist Progress Note ---
Subjective Progress Notes Subjective He is going to OR today for urology. He has no complaints. Physical Exam Vital Signs Date Time Temp Pulse Resp B/P (MAP) Pulse Ox O2 Delivery O2 Flow Rate FiO2 03/15/19 09:15 97.9 59 104/55 (71) 93 Room Air 03/15/19 07:56 20 03/13/19 03:40 1.0 Intake and Output 03/15/19 06:59 Intake Total 934 ml Output Total 1950 ml Balance -1016 ml Intake Oral 934 ml Output Urine Total 1950 ml # Bowel Movements 2 General Appearance: Alert, Awake, No Acute Distress, Afebrile Neuro: No Gross deficits Cardiovascular: Regular Rate and Rhythm Respiratory: No Respiratory Distress, Clear to Auscultation Psych: Appropriate Mood & Affect Result Diagram: 03/13/19 0537 03/14/19 0511 Assessment and Plan Problems: (1) Polyuria Status: Acute Assessment & Plan: Concerned about DI vs a primary polydipsia. He is on a fluid restriction of 2 liters/24 hours. Sodium remains wnl and creatinine relatively unchanged at 2.5. Will continue the fluid restriction to 1500cc. Urine osmolality increased to 395. (2) Pneumonia Status: Acute Assessment & Plan: His CT scan showed a "mass-like" opacity in the right upper lobe. He has remained afebrile and his WBC has been normal. He was on empiric treatment with ceftriaxone and azithromycin, but is now on oral cefdinir and has completed a course of azithromycin. He will need to have a repeat CT scan or possibly a CXR to be sure this lesion has resolved. (3) Hydronephrosis Status: Acute Assessment & Plan: Dr. Verdugo has been following him for this. He plans to leave the ureteral stent in until 03/15. Kendall to come out soon after. (4) Renal failure (ARF), acute on chronic Status: Acute Assessment & Plan: Secondary to hydronephrosis and exacerbated by having only one functioning kidney. However, cannot rule out a contribution from primary polydipsia vs volume depletion related to DI. Cr stable, but elevated. 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 Patient is s/p 4 cycles of BEP from to . Last Edited By: Josefina Rivers on Sep 09, 2014 13:28 Status: Acute (6) Down syndrome Status: Chronic Exam Sepsis Risk: No Definite Risk EVA ELY LEAD PROGRAMMER ANALYST March 15, 2019 10:57
[2019-03-15] MEDS ORDERED: NS 0.9% 3000 ML IRRIGATION BAG IR ONE (11:33)
--- NOTE | 2019-03-15 13:38 | OPERATIVE REPORT 1 ---
EVENT DATE: March 15, 2019 SURGEON: Alexandr Verdugo MD ANESTHESIOLOGIST: [place] MD ANESTHESIA: General. PREOPERATIVE DIAGNOSIS Right hydroureteronephrosis down to distal ureter/vesical junction with indwelling right ureteral stent. POSTOPERATIVE DIAGNOSIS Right hydroureteronephrosis down to distal ureter/vesical junction with indwelling right ureteral stent. PROCEDURE PERFORMED 1. Cystoscopy. 2. Grasping and removal of right double J stent. 3. Right retrograde pyelogram. 4. Replacement of right internal double J ureteral stent. ESTIMATED BLOOD LOSS Minimal. IV FLUIDS Crystalloids. DRAINS 1. 6 x 26 cm Contour stent on right. 2. 16-Congolese Silastic Kendall catheter. FINDINGS 1. Bullous edema of the floor and posterior wall, consistent with Kendall catheter and stent placement. 2. Delayed drainage on retrograde pyelogram but no significant hydronephrosis. COMPLICATIONS None. However, we had equipment malfunction with fluoroscopic imaging on the cystoscopic tape. CONDITION Patient taken to the recovery room awake and in stable condition. STATEMENT OF MEDICAL NECESSITY Patient is a 38-year old white male with solitary functioning right kidney. He was recently diagnosed with a right pneumonia. A CT scan performed showed mild hydroureteronephrosis on the right side down to the bladder and his creatinine was elevated at 2.7 up from his baseline of 1.5. The patient underwent right ureteral stent placement on March 05, and has been in the hospital since with Kendall catheter drainage. He had a significant diuresis following the stent placement. However, his creatinine is stabilized at approximately 23 to 25. His urine output is now in a more normal range. Our plan is to bring the patient to the operating room for planned stent removed followed by ureteroscopy to evaluate the distal ureter with hopeful removal of stent followed by renal scan to evaluate the functional obstruction. DESCRIPTION OF PROCEDURE The patient was brought to the operating room. After general anesthetic was obtained, he was prepped and draped in sterile dorsal lithotomy position on the cystoscopic table. Anesthetic cystoscopy was performed with the 21-Congolese rigid Olympus sheath in both the 30 and 70-degree lenses. He had a normal appearing urethra without evidence of stricture or other abnormalities. His prostate was widely opened. Upon entering his bladder, the stent was seen emanating from the right ureteral orifice. There was a significant amount of bullous edema around the stent, base of the floor and the posterior wall as well as some submucosal hemorrhaging, all consistent with indwelling Kendall and/or stent placement. At this point, the stent was grasped at its distal end and brought out to the meatus. Fluoroscopy was attempted. However, the screen on the cystoscopic table had no imaging. After multiple attempts, [employer] was called to the room and were unable to resolve the issue. However, there was an image in the control area away from the table. By walking around the table to the top, I could see the image, however, had no real-time fluoroscopic imaging capability for the case. Given this finding, I was reluctant to perform a rigid ureteroscopy given his solitary functioning renal unit. Therefore, I planned to perform a retrograde and if it drained well we would keep his stent out. Therefore, the wire and stent were successfully removed. The scope was replaced. A right retrograde pyelogram was performed using an 8-Congolese cone- tipped catheter, injecting 7 cc of contrast material. After injection, I walked around to the control area and viewed the image. He had some mild blunting of the calyceal system and no significant hydronephrosis. However, on observation over 10 to 15 minutes, I did not appreciate any significant contrast efflux out of the ureter and intermittent imaging was reviewed in the control area. Also, had no significant drainage. It was unclear whether this was a true obstruction or just some decreased peristalsis secondary to his indwelling stent. In any event, with the single renal unit and the inability to perform ureteroscopy without real-time imaging, I elected to replace his double J stent. Therefore, the scope was reintroduced and a 0.035 wire was advanced up to the upper pole calyx, which was confirmed by fluoroscopic imaging at the control area. A 6- Congolese x 26 cm stent was placed over the wire. The wire was removed. He had good curling in the bladder by direct vision and good placement in the renal pelvis by the image in the control center. At this point, a 16-Congolese Kendall catheter was placed and balloon inflated. B and O suppository was given. He was awakened in the operating room and taken to the recovery area in stable condition. The current plan will be to remove the patient's Kendall catheter in the recovery area, monitor his urine output and creatinine tomorrow. If it is stable and he is voiding well, we will allow him to go home tomorrow and then we will have him return to the operating room in a week or so after the imaging issue has been resolved in order to attempt to further evaluate this ureteral area. DARRELL
--- NOTE | 2019-03-15 15:04 | RADIOLOGY IMAGING REPORT ---
FACILITY: [facility] [place] PATIENT NAME: Robel Cason : 1980 MR: [id number] V: [id number] EXAM DATE: ORDERING PHYSICIAN: TITA MURPHY TECHNOLOGIST: Location: [facility] [place] Patient: Robel Cason : 1980 Visit/Account:[id number] Date of Sevice: 03/15/2019 Exam type: RETROGRADE PYELOGRAM History: HEMATURIA, stent removal and replacement Comparison: March 05, 2019 Findings: 18 intraoperative fluoroscopic spot images over the abdomen pelvis were submitted. The total fluoros copy time was 0.17 minutes. The fluoroscopy dose was 35.24 mGy. Initial images demonstrate right ur eteral stent in place. Subsequent images demonstrate removal of the right ureteral stent stent and c ontrast injected into the right ureter and right renal collecting system which both appeared mildly d ilated. Final images demonstrate placement of a right ureteral stent. IMPRESSION: 1. As above Report Dictated By: Rachel Ba MD at 03/15/2019 2:58 PM Report E-Signed By: Rachel Ba MD at 03/15/2019 3:01 PM WSN:[email or web address]
[2019-03-15] MEDS: ARIPiprazole 10 MG TAB PO SCH (20:16)
[2019-03-15] MEDS: OXYBUTYNIN CHL XL 5 MG TABCR PO SCH (20:16)
[2019-03-15] MEDS: CETIRIZINE HCL 10 MG TAB PO SCH (20:16)
[2019-03-16] MEDS: LEVOTHYROXINE SOD 0.175 MG TAB PO SCH (06:18)
[2019-03-16 06:55] LABS: PLATELET COUNT, AUTOMATED 317 K/uL (150-450)
[2019-03-16 08:31] VITALS: BP 104/66
[2019-03-16] MEDS: VENLAFAXINE XR 75 MG CAPCR PO SCH (08:33)
--- NOTE | 2019-03-16 10:50 | Hospitalist Depart ---
Discharge Summary Reason for Hosp/Final Diag: (1) Polyuria Status: Acute Hospital Course & Plan: Concerned about DI vs a primary polydipsia. He is on a fluid restriction of 2 liters/24 hours. Sodium remains wnl and creatinine relatively unchanged at 2.5. He was placed on a fluid restriction to 1500cc. Urine osmolality increased to 395. He should continue liquid normalcy at home intake of only 2500cc daily. (2) Pneumonia Status: Acute Hospital Course & Plan: His CT scan showed a "mass-like" opacity in the right upper lobe. He has remained afebrile and his WBC has been normal. He was on empiric treatment with ceftriaxone and azithromycin, but is now on oral cefdinir and has completed a course of azithromycin. He will need to have a repeat CT scan or possibly a CXR to be sure this lesion has resolved in 6 weeks. (3) Hydronephrosis Status: Resolved Hospital Course & Plan: Dr. Verdugo has been following him for this. Patient still has stent placed, and will need to go to OR in 10 days-2 weeks. The Kendall has been removed and he has not had difficulty voiding. (4) Renal failure (ARF), acute on chronic Status: Acute Hospital Course & Plan: Secondary to hydronephrosis and exacerbated by having only one functioning kidney. However, cannot rule out a contribution from primary polydipsia vs volume depletion related to DI. Cr stable, but elevated. Will have creatinine checked prior to surgery in 2 weeks. 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 Patient is s/p 4 cycles of BEP from to . Last Edited By: Josefina Rivers on Sep 09, 2014 13:28 Status: Acute (6) Down syndrome Status: Chronic Departure Latest Vital Signs Vital Signs 03/15/19 03/16/19 13:30 08:31 Temp 97.9 Pulse 66 Resp 16 B/P (MAP) 104/66 (79) Pulse Ox 90 O2 Delivery Room Air O2 Flow Rate 2.0 Weight (Pounds): 272 Weight (Ounces): 13.0 Result Diagram: 03/16/1962003/16/19620 Condition: Improved Discharge: Assisted Living Discharge Instructions Home Meds Active Scripts Chlorhexidine Gluconate (HIBICLENS) 118 Ml Liquid, 1 ML TP DAILY for 30 Days, #1 BOTTLE 3 Refills Prov:JACOB STARKEY AJIT 06/25/18 Reported Medications Venlafaxine Hcl (VENLAFAXINE HCL ER) 150 Mg Cap.er.24h, 300 MG PO QDAY 03/05/19 Levothyroxine Sodium (LEVOTHYROXINE SODIUM) 100 Mcg Tablet, 175 MCG PO QDAY, TAB 03/05/19 Aripiprazole (ABILIFY) 15 Mg Tablet, 15 MG PO QHS, TAB 03/05/19 Loperamide Hcl (ANTI-DIARRHEAL) 2 Mg Capsule, 2 MG PO, CAPSULE 02/10/19 Naproxen Sodium (ALEVE) 220 Mg Capsule, 220 MG PO Q12H PRN for PAIN, CAPSULE 03/05/18 Guaifenesin (ROBAFEN) 100 Mg/5 Ml Liquid, 400 MG PO Q4-6H PRN for CONGESTION 09/03/17 Ketotifen Fumarate (ALLERGY EYE DROPS) 10 Ml Drops, 1 GTT OU BID 09/03/17 Menthol/Zinc Oxide (GOLD TADEO MEDICATED BODY POWD) 113 Gm Powder, 113 GM TP 09/03/17 Chlorhexidine Gluconate (Peridex) 0.12 % Mouthwash, RINSE HS 09/03/17 Menthol (BIOFREEZE) 118 Ml Gel..ml., TOP PRN 09/03/17 Ammonium Lactate (Ammonium Lactate) 12 % Lotion, TOP BID 09/03/17 Oxybutynin Chloride (OXYBUTYNIN CHLORIDE) 5 Mg Tablet, 5 MG PO QHS, TAB 06/07/17 Triamcinolone Acetonide 0.1% Cr 15 Gm Tube (TRIAMCINOLONE ACETONIDE 0.1% CREAM) 15 Gm Cream..g., 15 GM TP PRN, TUBE 06/07/17 Acetaminophen (TYLENOL EXTRA STRENGTH) 500 Mg Tablet, 1-2 TAB PO Q4-6H, TAB 06/07/17 Ibuprofen (IBUPROFEN) 200 Mg Capsule, 1-2 CAP PO Q6H PRN for PAIN, CAPSULE 03/08/16 Hydrocortisone/Aloe Vera (HYDROCORTISONE 1% OINTMENT) 28 Gm Oint...g., 28 GM TP PRN 03/08/16 Clobetasol Propionate/Emoll (CLOBETASOL EMOLLIENT 0.05% CRM) 15 Gm Cream..g., 0 TP PRN 03/08/16 Bacitracin (BACITRACIN ZINC) 0.9 Gm Oint, 0.9 GM TP PRN 03/08/16 Tolnaftate (ATHLETE'S FOOT) 150 Gm Gerald, 150 GM TP PRN, SPRAY 03/08/16 Cetirizine Hcl (Zyrtec) 10 Mg Tab, 10 MG PO QHS 03/11/13 Discontinued Reported Medications Chlorhexidine Gluconate (HIBICLENS) 118 Ml Liquid, 118 ML TP 02/10/19 Diet: Regular, Fluid Restricted (please intake only 2500cc daily) Activity: As Tolerated Special Instructions: Please intake only 2500cc daily of fluids. You will need to return within 2 weeks for surgery to remove the stent. Follow up with Dr. Verdugo for scheduling of surgery. You will need follow up chest x-ray in 5 weeks to show resolution of pneumonia. Venous Thromboembolism Antithrombotics Is Pt On Any Antithrombotics?: No EVA ELY March 16, 2019 10:50
== END 2019-03-16 11:50 | disposition home or self-care (01) | DRG 988 ==
LOC: ER 05:00 → MED 08:12
PROVIDERS: ADMIT Internal Medicine; ATTEND Internal Medicine
PROC: BT16YZZ Fluoroscopy of Right Ureter using Other Contrast (ICD-10-PCS; 2019-03-05)
PROC: 0T9B70Z Drainage of Bladder with Drainage Device, Via Natural or Artificial Opening (ICD-10-PCS; 2019-03-05)
PROC: 0T768DZ Dilation of Right Ureter with Intraluminal Device, Via Natural or Artificial Opening Endoscopic (ICD-10-PCS; principal; 2019-03-05 17:30)
PROC: 0T768DZ Dilation of Right Ureter with Intraluminal Device, Via Natural or Artificial Opening Endoscopic (ICD-10-PCS; 2019-03-15)
PROC: 0TP98DZ Removal of Intraluminal Device from Ureter, Via Natural or Artificial Opening Endoscopic (ICD-10-PCS; 2019-03-15)
PROC: BT16YZZ Fluoroscopy of Right Ureter using Other Contrast (ICD-10-PCS; 2019-03-15)
DX: J18.9 Pneumonia, unspecified organism (principal); N17.9 Acute kidney failure, unspecified; Z68.43 Body mass index [BMI] 50.0-59.9, adult; N13.30 Unspecified hydronephrosis; L87.2 Elastosis perforans serpiginosa; Q90.9 Down syndrome, unspecified; R09.02 Hypoxemia; E89.5 Postprocedural testicular hypofunction; G47.33 Obstructive sleep apnea (adult) (pediatric); E03.9 Hypothyroidism, unspecified; R63.1 Polydipsia; E66.01 Morbid (severe) obesity due to excess calories; K21.9 Gastro-esophageal reflux disease without esophagitis; F32.9 Major depressive disorder, single episode, unspecified; N18.9 Chronic kidney disease, unspecified; Z85.47 Personal history of malignant neoplasm of testis; Z90.79 Acquired absence of other genital organ(s); Z92.21 Personal history of antineoplastic chemotherapy
CPT/HCPCS: 36415; 71045; 71046; 71250; 74176; 74420; 76705; 81001; 82040; 82105; 82247; 82310; 82374; 82435; 82436; 82565; 82570; 82947; 83615; 83735; 83880; 83930; 83935; 84075; 84132; 84133; 84155; 84295; 84300; 84450; 84460; 84484; 84520; 84540; 84702; 85025; 85379; 85610; 85651; 85730; 86140; 87040; 87088; 93005; 96361; 96365; 96375; 99285; C1758; C1769; C1894; C2617; J0456; J0690; J0696; J1100; J2001; J2405; J2704; J3010; J3490; J7030; J7040; J7050; J7120; Q9966; Q9967

== ENCOUNTER 2019-03-18 09:52 | Outpatient (RCR) | payer MEDICAID ==
[2019-02-09 09:38] LABS: PLATELET COUNT, AUTOMATED 186 K/uL (150-450)
[2019-02-09 10:49] VITALS: BP 118/78
--- NOTE | 2019-02-09 20:27 | ONCOLOGY FOLLOW UP NOTE ---
EVENT DATE: February 09, 2019 CHIEF COMPLAINT Patient is here with his caregiver, who recently noticed some bruising to the left flank and lower back. Patient is being followed for stage IIIB testicular cancer. HISTORY OF PRESENT ILLNESS Robel is being seen today prior to his scheduled six-month followup after caregivers noticed some bruising to his lower left back. He is a 38-year-old male who initially presented with left testicular cancer in November 2008. He underwent treatment with four courses of BEP. Tumor markers have remained within normal limits. He does have Down syndrome and is a resident at The [facility]. Much of his history is related to us by his caregiver who accompanies him. His caregiver, Josr, denies any changes with Robel. He initially denied any antecedent traumas prior to noticing the bruises, but then reported that Robel did have a fall two or three weeks ago in which he tripped, but only fell onto his knees. There were no sustained injuries. Otherwise, no changes. He has been eating and drinking well. He has not had any fevers or any recent health changes. PAST MEDICAL HISTORY 1. 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 2. Down syndrome. 3. Obstructive sleep apnea. 4. Elastosis perforans serpiginosa. PAST SURGICAL HISTORY 1. In November 2008, left radical orchiectomy. 2. In November 2008, left ureteral stent placement. 3. In February 2009, left ureteral stent placement. 4. In July 2009, replacement of left double-J ureteral stent. 5. In January 2010, replacement of left double-J ureteral stent. 6. In August 2010, the patient had replacement of the left double-J ureteral stent. SOCIAL HISTORY The patient has Down syndrome with mental retardation. He is a resident of The [facility]. His guardian is his father who lives in [place], [place]. His mother lives in [place]. No history of tobacco, alcohol, or drugs. FAMILY HISTORY According to his caregiver, there is positive family history of cancer on the father's side. CURRENT MEDICATIONS 1. Abilify 10 mg daily. 2. Tylenol 500 mg p.r.n. 3. Antacid 500 mg chewable tablets, two tablets as needed. 4. Imodium p.r.n. for diarrhea. 5. Athlete foot spray as needed. 6. Bacitracin zinc ointment as needed. 7. Oxycodone/acetaminophen 5/325 mg one to two tablets every six hours p.r.n. 8. Colace 100 mg twice daily. 9. Dicyclomine/hydrochloride 10 mg four times daily. 10. Effexor 75 mg daily. 11. Topamax 100 mg tablet twice daily. 12. Omeprazole 20 mg daily. 13. Zyrtec 10 mg at bedtime. 14. Abilify 10 mg at bedtime. ALLERGIES No known drug allergies. REVIEW OF SYSTEMS CONSTITUTIONAL: Patient's caregiver denies any recent changes in health status including no recent fevers, chills, or infections. DERM: Caregivers noticed some areas of bruising to the left flank, left posterior back recently. They have not noticed any bleeding. As mentioned, the majority of history is given to us by caregivers. The remainder of a 12-point review of systems is performed today and is otherwise negative. PHYSICAL EXAMINATION VITAL SIGNS: No weight today. Last weight 118.1 kg. Temperature 97.3, P 73, R 16, BP 118/78, oxygen saturation 95% room air. GENERAL: In general, this is a pleasant 38-year-old gentleman with Down syndrome who appears well hydrated, well nourished, and is in no acute distress. HEAD: Normocephalic, atraumatic. EYES: Consistent with Down syndrome. Sclerae anicteric. ENT, MOUTH: Slightly dry mucous membranes. No suspicious ulcerations or lesions. NECK: Supple. No lymphadenopathy. No JVD. LUNGS: Clear breath sounds to auscultation bilaterally. CARDIOVASCULAR: Regular rate and rhythm. No ectopy. ABDOMEN: Soft, obese, nontender. Bowel sounds positive x4. EXTREMITIES: Trace edema noted bilaterally to the lower calves. No clubbing or cyanosis. NEUROLOGIC: Patient is awake and alert. Neuro exam consistent with history of Down syndrome. He does answer certain questions appropriately. PSYCHIATRIC: Mood and affect are appropriate. He has not had any difficulties while living at [facility]. DERM: There is a large area of bruising noted to the left flank which extends to the left posterior trunk. There is no erythema. Bruising is in different shades of purple and green. No other bruises noted. Two small 1 to 2 mm macules are noted at the left posterior scapula. They have mild erythema. This is likely related to his history of elastosis perforans serpiginosa (EPS). LABORATORY CBC today: WBC 3.9, ANC 2.8, hemoglobin 11.7, hematocrit 34.5%, platelets 186,000. Red blood cell indices reveal a macrocytic hyperchromia with MCV elevated at 98.5 and MCH elevated at 33.4. CMP today: Sodium normal, 139, potassium 4.3, normal, BUN elevated at 63 with serum creatinine elevated at 2.9. Calcium normal, 9.1. LFTs all within normal limits to include normal AST at 18, normal ALT at 15, alkaline phosphatase normal at 54, total protein normal, 7.1, with albumin 4.0. Iron studies were added during our visit today. Ferritin normal at 336, with iron saturation at 19.8%. TSH is pending, as are B12 level and folate level. IMPRESSION AND PLAN This is a pleasant 38-year-old male with: 1. Stage IIIB (T2 N3 M1a S2) pure seminoma of the left testicle with extensive retroperitoneal and mediastinal adenopathy. Underwent left radical orchiectomy in November 2008, followed by four courses of bleomycin, etoposide, and cisplatin (BEP), completed January 2009. Tumor markers have remained within normal limits. The patient and his caregiver deny any changes while at [facility]. He has been eating and drinking fluids well and has not reported any pain. He does have some areas of bruising noted to the left flank. 2. Labs drawn today revealed serum creatinine elevated at 2.9. He does have a history of renal insufficiency, though this had been stable over the last few years. Caregiver reports that patient has been drinking well, though does not tend to like to drink water and has to flavor this. Reports that to their knowledge urination has been normal. For today, we will hydrate with 1 L normal saline intravenously in efforts to help improve his renal output and decrease serum creatinine. 3. Urology: Patient has seen Dr. Verdugo locally in Urology, though has not in some time. I have written orders for patient to see his urologist again in the near future. This was explained to patient's caregiver so that they can get that scheduled. 4. Patient will return to clinic next month as scheduled for ongoing followup with his medical oncologist, Dr. Leo. Patient is scheduled to be seen on 03/18/19. We will check appropriate labs at that time, to include repeat CMP to re-evaluate his serum creatinine, CBC, as well as tumor markers for his history of stage IIIB pure seminoma of the left testicle, to including LDH, alpha-fetoprotein, and beta-hCG. Chest x-ray will be done prior to that visit as well. DARRELL
[2019-03-06 08:40] VITALS: Wt 124.0 kg
[~2019-03-18 09:52] MED LIST changes: +ARIP15TA9 PO; +NS(*) 0.9% 1000 ML BAG 1,000 ML IV ONE; +VENL150C3 PO
[2019-03-18 10:05] VITALS: BP 110/73
--- NOTE | 2019-03-18 13:21 | EL-TARABILY ONCOLOGY NOTE ---
EVENT DATE: March 18, 2019 DIAGNOSES 1. 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 2. Down syndrome. 3. Obstructive sleep apnea. 4. Elastosis perforans serpiginosa. CHIEF COMPLAINT The patient is here today for followup of his seminoma. ONCOLOGY HISTORY The patient is a resident of the [facility] with mental retardation, and most of the history was taken from a caregiver. He is a 38-year-old male with Down syndrome. PRESENTATION With back pain in 2008 with large mass of the left testicle. DIAGNOSTIC EVALUATION Testicular ultrasound done on December 08, 2008 showed a large heterogeneous hypervascular mass about 7.5 cm. Chest x-ray showed a widened mediastinum. Preoperative tumor marker showed alpha fetoprotein less than 1, beta HCG mildly elevated at 27 and LDH high at 1314. PROCEDURE Left radical orchiectomy done on December 08, 2008. PATHOLOGY Pure seminoma with penetration of the tunica albuginea, but not to the tunica vaginalis, consistent with t2 lesion. STAGING CT of chest, abdomen and pelvis done on December 09, 2008 showed bulky upper mediastinal adenopathy as well as extensive bulky retroperitoneal adenopathy. There was a question of skeletal involvement in the lumbar spine. STAGE Stage IIIB ([id number]) pure seminoma of the left testicle with extensive retroperitoneal and mediastinal adenopathy. TREATMENT The patient received four courses of BEP chemotherapy with bleomycin, etoposide and cisplatin between November 2008 through January 2009 with residual mediastinal and retroperitoneal masses up to 3 cm in size. HISTORY OF PRESENT ILLNESS The patient is here today for followup of his seminoma of the left testicle. Patient has been discharged from the hospital recently after treatment of pneumonia and patient also had a stent on the right side of the urinary tract for elevated creatinine. He is complaining of runny nose, some residual cough from his pneumonia and pain in the knees and ankles. PAST MEDICAL HISTORY 1. Seminoma of the left testicle diagnosed November 2008. 2. Left hydronephrosis secondary to obstruction due to compression by the surrounding masses. 3. Obstructive sleep apnea diagnosed September 2002. 4. Down syndrome. 5. Elastosis perforans serpiginosa. PAST SURGICAL HISTORY 1. In November 2008, left radical orchiectomy. 2. In November 2008, left ureteral stent placement. 3. In February 2009, left ureteral stent placement. 4. In July 2009, replacement of left double J ureteral stent. 5. In January 2010, replacement of left double J ureteral stent. 6. In August 2010, the patient had replacement of the left double J ureteral stent. SOCIAL HISTORY The patient has Down syndrome with mental retardation. He is a resident of the [facility]. His guardian is his father who lives in [place], [place]. His mother lives in [place]. No history of tobacco, alcohol or drugs. FAMILY HISTORY According to his caregiver, there is positive family history of cancer on the father's side. CURRENT MEDICATIONS 1. Abilify 10 mg daily. 2. Tylenol 500 mg p.r.n. 3. Antacid 500 mg chewable tablets, two tablets as needed. 4. Imodium p.r.n. for diarrhea. 5. Athlete foot spray as needed. 6. Bacitracin zinc ointment as needed. 7. Oxycodone/acetaminophen 5/325 mg one to two tablets every six hours p.r.n. 8. Colace 100 mg twice daily. 9. Dicyclomine/hydrochloride 10 mg four times daily. 10. Effexor 75 mg daily. 11. Topamax 100 mg tablet twice daily. 12. Omeprazole 20 mg daily. 13. Zyrtec 10 mg at bedtime. 14. Abilify 10 mg at bedtime. ALLERGIES No known drug allergies. REVIEW OF SYSTEMS CONSTITUTIONAL: No appetite or weight change. No fever, chills or sweating. No recent infection. HEENT: Ears: No tinnitus or hearing problem. Nose: Patient has nasal discharge. Throat: No sore throat or mouth ulcers. Eyes: No diplopia or visual changes. RESPIRATORY: He has cough from recent pneumonia. CARDIOVASCULAR: No chest pain, orthopnea, or paroxysmal nocturnal dyspnea (PND). No edema. No palpitations. GASTROINTESTINAL: No nausea or vomiting. The patient has occasional diarrhea. No constipation. No change in bowel movements. No heartburn or swallowing difficulties. No abdominal pain. No jaundice. No hematemesis, melena or rectal bleeding. GENITOURINARY: No hematuria or dysuria. MUSCULOSKELETAL: He has pain in the knees and ankles. NEUROLOGICAL: No tingling or numbness in the hands or feet. No headaches or convulsions. HEMATOLOGIC/LYMPHATIC: No bleeding or easy bruising. No weakness or fatigue. No enlarged lymph nodes. SKIN: No skin rash or lumps. PSYCHIATRIC: No anxiety or depression. PHYSICAL EXAMINATION GENERAL: Looks stable. Well-developed, well-nourished, and in no acute distress. VITAL SIGNS: Blood pressure 110/73, pulse 60 per minute, respirations 16 per minute, temperature 95.8, pulse ox 95% on room air. HEENT: Head: Atraumatic. No sinus tenderness to palpation. Eyes: No icterus or conjunctivitis. Mouth and throat: No oral thrush or mucositis. NECK: Supple. No cervical or supraclavicular lymphadenopathy. LUNGS: Clear to auscultation and percussion bilaterally. HEART: Regular rate and rhythm. No gallops, murmurs, clicks or rubs. ABDOMEN: Soft and lax. No tenderness. No hepatosplenomegaly. No masses. EXTREMITIES: No cyanosis, clubbing or edema. LYMPHATICS: No peripheral lymphadenopathy. NEUROLOGICAL: Conscious, alert and oriented times three. No focal motor or sensory deficits. PSYCHIATRIC: Mood and affect appear normal. SKIN: No skin rash, bruise or purpuric eruption. DIAGNOSTIC DATA CBC showed white count 6.3, hemoglobin 11.6, hematocrit 35.2, platelets 317,000. Chem panel normal except BUN 46, creatine 2.5. Alpha fetoprotein is normal at 2. Beta-HCG is normal at less than 2 and LDH is normal at 311. ASSESSMENT 1. Stage IIIB (T2 N3 M1aS2) pure seminoma of the left testicle with extensive retroperitoneal and mediastinal adenopathy, status post radical orchiectomy done November 2008, status post four courses of BEP with bleomycin, etoposide and cisplatin received between November 2008 through January 2009 with some residual mediastinal and retroperitoneal masses up to 3 cm in size, which were decreasing in size by previous CT scans. Tumor markers with alpha fetoprotein, beta-HCG and LDH are totally normal. I am planning to continue followup. I will see him again in six months with CBC, chem panel, LDH, alpha fetoprotein, beta-HCG. 2. Down syndrome. The patient is a resident of the [facility] 3. Elastosis perforans serpiginosa. 4. Obstructive sleep apnea. PLAN 1. Continue followup. 2. The patient to return in six months with CBC, chem panel, LDH, alpha fetoprotein, beta-HCG and chest x-ray. 3. The patient to contact us for any new concern or complaints. DARRELL
[2019-03-29] MEDS ORDERED: LEVO175T42 PO (14:50)
[2019-03-29] MEDS ORDERED: OXYB5TAB80 PO (14:52)
== END 2019-03-29 13:06 | disposition home or self-care (01) ==
LOC: ONC 09:52
PROVIDERS: ATTEND Internal Medicine Hematology
DX: Z85.47 Personal history of malignant neoplasm of testis (principal); S30.0XXA Contusion of lower back and pelvis, initial encounter; Q90.9 Down syndrome, unspecified; Z79.899 Other long term (current) drug therapy; N28.9 Disorder of kidney and ureter, unspecified; D72.819 Decreased white blood cell count, unspecified; J06.9 Acute upper respiratory infection, unspecified; Z92.21 Personal history of antineoplastic chemotherapy
CPT/HCPCS: 36415; 82607; 82728; 82746; 83540; 83550; 84443; 85025; 96360; G0463; J7030; 82040; 82247; 82310; 82374; 82435; 82565; 82947; 84075; 84132; 84155; 84295; 84450; 84460; 84520; 99212

== ENCOUNTER 2019-03-29 01:17 | Observation (INO) | payer MEDICAID ==
[2019-03-06 08:40] VITALS: Ht 152.4 cm; Wt 119.3 kg
--- NOTE | 2019-03-26 09:36 | HISTORY AND PHYSICAL ---
DATE OF ADMISSION: March 29, 2019 CHIEF COMPLAINT Right hydronephrosis with history of solitary functioning kidney with indwelling stent. HISTORY OF PRESENT ILLNESS Patient is a 38-year old white male with Down Syndrome. He has a history of a left stage IIIB pure seminoma in 2008. At that time, he underwent ekwok based chemotherapy for metastatic disease to the retroperitoneum, which resulted in retroperitoneal fibrosis and subsequent poorly functioning left kidney. He presented to the emergency room on March 05 with shortness of breath and was found to have a right pneumonia. In addition, he was noted to have new hydronephrosis down to the bladder with a creatinine of 2.8, which was up from his baseline of 1.5 for the past several years. He was originally taken to the operating room on March 05 and had a right retrograde pyelogram performed, which showed some mild dilation of the ureter but good drainage on delayed films and observation. Given his status of having a solitary functioning unit, a stent was placed as well as a Kendall catheter and he was admitted to the hospital. The patient had a significant diuresis over the next several days. However, his creatinine did not significantly decrease and remained about 2.5 with Kendall catheter and ureteral stent drainage. He was returned to the operating room on March 15 for planned stent removal with ureteroscopy. However, there was a malfunction on the fluoroscopic imaging system and it was felt that this would not be safe to perform ureteroscopy in an unknown etiology with a single functioning kidney without maximum imaging capability. Therefore, a retrograde was performed, which showed some poor drainage. However, this could be maybe secondary to poor peristalsis after ten days of ureteral stenting. Therefore, the stent was replaced and the plan is to have the patient return to the operating room today for ureteroscopy. He has had his Kendall catheter out for the past two weeks and we will recheck his creatinine preoperatively to further assess renal function. PAST MEDICAL HISTORY * Down Syndrome. * Hypothyroidism. * Obesity. * Obstructive sleep apnea. * Gastroesophageal reflux disease. * Left testis pure seminoma, stage IIIB, status post ekwok-based chemotherapy in 2008. 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 * Depression. * Hypergonadism. * History of distal urethral stricture. * Chronic renal insufficiency. * Elastosis perforans serpiginosa. PAST SURGICAL HISTORY * Left radical orchiectomy, 2008. * Left double-J ureteral stent placement and replacement. * Left ureteral dilation. * Right simple inguinal orchiectomy, secondary to undescended testis, October 2013. * Right stent placement with exchange in February 2019. CURRENT MEDICATIONS As per medication list in the medical record. SOCIAL HISTORY Patient is a patient of the [facility] and staff denies tobacco or ethanol use. REVIEW OF SYSTEMS Patient is currently without shortness of breath, nausea, vomiting, fever, chills, flank pain, abdominal pain or significant change in voiding. PHYSICAL EXAMINATION GENERAL: Middle-aged, obese white male with Down's features. CHEST: Clear to auscultation bilaterally. CARDIOVASCULAR: Regular rate and rhythm. ABDOMEN: Obese, soft. No masses palpated. BACK: Normal without CVAT. : Deferred to OR. EXTREMITIES: Without clubbing, cyanosis or edema. NEUROLOGIC: Nonfocal. ASSESSMENT A 38-year old male wit Down syndrome with a solitary functioning right system with newly diagnosed right hydroureteronephrosis down to the bladder. It is unclear whether this is a functional change from polyuria or a partial obstruction at the UVJ. He currently has an indwelling stent and has his Kendall out. PLAN We will recheck a creatinine before the procedure to re-evaluate his current renal function followed by anesthetic cystoscopy, stent removal with ureteroscopy. If it is deemed he has no significant obstruction, we will remove his stent, place his Kendall catheter, admit the patient overnight to watch his urine output, creatinine and perform a renal scan with Lasix washout postoperatively. DARRELL
[2019-03-29] VITALS (14 sets, daily range): BP systolic 83–134; BP diastolic 45–67
[~2019-03-29] VITALS: Ht 152.4 cm; Wt 119.3 kg
[~2019-03-29 01:17] MED LIST changes: -NS(*) 0.9% 1000 ML BAG 1,000 ML IV ONE
[2019-03-29] MEDS ORDERED: IOPAMIDOL-200 50 ML VIAL IS ONE (07:03)
[2019-03-29] MEDS ORDERED: FAMOTIDINE 20 MG TAB PO ONE (07:25)
[2019-03-29] MEDS ORDERED: LIDOCAINE/SOD BICARB 8.4% SYR ID ONE (07:25)
[2019-03-29] MEDS ORDERED: NORMOSOL R SOLN(*) 1000 ML BAG 1,000 ML IV PRN (07:25)
[2019-03-29] MEDS ORDERED: MIDAZOLAM 2 MG/2 ML VIAL IVP PRN (07:25)
[2019-03-29] MEDS ORDERED: ceFAZolin(*) 2GM/D5W 50ML 50 ML IVPB ONE (07:25)
[2019-03-29] MEDS ORDERED: ONDANSETRON 4 MG/2 ML VIAL ONE (07:34)
[2019-03-29] MEDS ORDERED: DEXAMETHASONE SOD 4 MG/ML VIAL ONE (07:34)
[2019-03-29] MEDS ORDERED: PROPOFOL EMUL(*) 10MG/ML 20 ML 20 ML ONE (07:34)
[2019-03-29] MEDS ORDERED: LIDOCAINE MPF 1% 5 ML VIAL ONE (07:34)
[2019-03-29] MEDS ORDERED: fentaNYL CITR 100 MCG/2 ML AMP ONE ×2 (07:35→09:47)
[2019-03-29] MEDS ORDERED: KETAMINE HCL-NS 50 MG/5 ML SYR ONE (07:38)
[2019-03-29 08:21] LABS: PLATELET COUNT, AUTOMATED 171 K/uL (150-450)
[2019-03-29] MEDS ORDERED: BELLADONNA ALK/OPIUM 60MG SUPP PR ONE (08:32)
--- NOTE | 2019-03-29 10:43 | RADIOLOGY IMAGING REPORT ---
FACILITY: [facility] - [place] PATIENT NAME: Robel Cason : 1980 MR: [id number] V: [id number] EXAM DATE: ORDERING PHYSICIAN: TITA MURPHY TECHNOLOGIST: Location: [facility] [place] Patient: Robel Cason : 1980 Visit/Account:[id number] Date of Sevice: 03/29/2019 RETROGRADE PYELOGRAM Indication: RIGHT URETERAL OBSTRUCTION, STENT EXCHANGE Comparison: None. Findings: Images from a right ureterogram are available. Right ureteral stent appears in good positi on. IMPRESSION: Right ureterogram. Radiation dose: AK 30.69 mGy Report Dictated By: Abdulaziz Fitzpatrick at 03/29/2019 10:35 AM Report E-Signed By: Abdulaziz Fitzpatrick at 03/29/2019 10:38 AM IVELISSEN:JONATHON
--- NOTE | 2019-03-29 10:52 | OPERATIVE REPORT 1 ---
EVENT DATE: March 29, 2019 SURGEON: Alexandr Verdugo MD ANESTHESIOLOGIST: Shiraz Cote MD ANESTHESIA: General anesthetic. PREOPERATIVE DIAGNOSIS Right hydroureteronephrosis with solitary functioning kidney with current indwelling ureteral stent. POSTOPERATIVE DIAGNOSIS Right hydroureteronephrosis with solitary functioning kidney with current indwelling ureteral stent. PROCEDURE PERFORMED 1. Cystoscopy. 2. Removal of right double-J stent. 3. Distal right semirigid ureteroscopy. 4. Right retrograde pyelogram. 5. Kendall catheter placement. ESTIMATED BLOOD LOSS Minimal. IV FLUIDS Crystalloid. DRAINS 16-Nepalese Silastic Kendall catheter. FINDINGS Normal uteroscopy with normal retrograde pyelogram without evidence of visual obstruction. COMPLICATIONS None. CONDITION The patient was taken to the recovery room, awake and in stable condition. 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 The patient's creatinine has been at baseline at approximately 1.5. However, on March 05 he had developed symptoms of shortness of breath. A CT scan was performed which showed a right pneumonia. In addition, he was also noted to have a new right dilation down to the ureteral orifice and his creatinine was 2.7. He originally underwent cystoscopy with stent placement followed by Kendall catheter placement. He had a significant diuresis following this, and his creatinine stabilized at approximately 2.5 with maximum urologic drainage. He was taken back to the operating room on March 15 for planned ureteroscopy. However, there was an issue with the fluoroscopic imaging system and therefore he only had his stent exchanged. He is now being brought to the operating room for planned benefit of ureteroscopy to evaluate this distal ureter. His preoperative creatinine is 2.3 which is at his new baseline. DESCRIPTION OF PROCEDURE The patient was brought to the operating room and after general anesthetic was obtained, he was placed in the dorsal lithotomy position, prepped and draped in the usual sterile manner. Anesthetic cystoscopy was performed with a 21-Nepalese Olympus sheath and a 30-degree lens. He had a normal appearing urethra without evidence of strictures or other lesions. His prostate was widely open. Upon entering his bladder, he had some mild bullous edema around the base secondary to the stent. There was no evidence of lesions or other tumors. At this point, the distal end of the stent was grasped and was brought out through the meatus. Then a 0.035 wire was advanced into the lumen of the stent, advancing to the upper pole of the calyx and the stent was removed. This wire was secured to the drapes as a safety wire. The Olympus semirigid ureteroscope was then advanced under direct vision through the patient's urethra into his bladder. A semirigid ureteroscopy was performed next to the wire. The scope slid easily into the urethra. There was no evidence of stricture, foreign body, or other lesions. The scope advanced easily up to the level of the vessels. Again, pull-out ureteroscopy was performed and meticulous inspection of the ureter was done with excellent visualization. Again, there were no lesions or other anomalies. At this point, the scope was removed as well as the safety wire. The cystoscope was then replaced and a right retrograde pyelogram was performed with a 6-Nepalese open-ended access catheter. 7 cc of contrast material was injected in a retrograde manner. Real-time fluoroscopy was performed during the procedure and he was noted to have excellent visualization on his x-ray and by direct vision at the ureteral orifice. He had good efflux of contrast immediately after injection. Delayed film approximately 3 minutes later, revealed approximately 90% drainage of the contrast. Therefore, at this point the scope was removed and a 16-Nepalese Kendall catheter was placed. The patient was given a B and O suppository. He was awakened in the operating room and taken to the recovery area in stable condition. The plan will be to keep Robel this evening with the Kendall catheter in place. We will recheck his creatinine in the morning and if it is stabilized, we will remove his catheter and allow him to be discharged home. We will plan to get a follow up creatinine with a DTPA renal scan in the next 2 to 3 weeks. DARRELL
[2019-03-29] MEDS ORDERED: NS(*) 0.9% 1000 ML BAG 1,000 ML IV PRN (11:00)
[2019-03-29] MEDS ORDERED: PHENAZOPYRIDINE 200 MG TAB PO PRN ×2 (11:00→11:10)
[2019-03-29] MEDS: ACETAMINOPHEN 325 MG TAB PO PRN ×2 (11:10→20:08)
[2019-03-29] MEDS ORDERED: FLUSH 10 ML SYR IVP PRN (11:10)
--- NOTE | 2019-03-29 11:37 | Hospitalist Consultation ---
History of Present Illness Requesting Physician Dr. Verdugo Reason for Consult Medical Management of comorbidities Chief Complaint s/p stent removal History of Present Illness He was admitted s/p stent removal by Dr. Verdugo. It is reported the procedure went well and without complication. History Problems: (1) Hypothyroidism Status: Chronic (2) Down syndrome Status: Chronic Home Meds Active Scripts Chlorhexidine Gluconate (HIBICLENS) 118 Ml Liquid, 1 ML TP DAILY for 30 Days, #1 BOTTLE 3 Refills Prov:JACOB STARKEY NPC 06/25/18 Reported Medications Venlafaxine Hcl (VENLAFAXINE HCL ER) 150 Mg Cap.er.24h, 300 MG PO QDAY 03/05/19 Levothyroxine Sodium (LEVOTHYROXINE SODIUM) 100 Mcg Tablet, 175 MCG PO QDAY, TAB 03/05/19 Loperamide Hcl (ANTI-DIARRHEAL) 2 Mg Capsule, 2 MG PO, CAPSULE 02/10/19 Ketotifen Fumarate (ALLERGY EYE DROPS) 10 Ml Drops, 1 GTT OU BID 09/03/17 Chlorhexidine Gluconate (Peridex) 0.12 % Mouthwash, RINSE HS 09/03/17 Menthol (BIOFREEZE) 118 Ml Gel..ml., TOP PRN 09/03/17 Ammonium Lactate (Ammonium Lactate) 12 % Lotion, TOP BID 09/03/17 Oxybutynin Chloride (OXYBUTYNIN CHLORIDE) 5 Mg Tablet, 5 MG PO QHS, TAB 06/07/17 Triamcinolone Acetonide 0.1% Cr 15 Gm Tube (TRIAMCINOLONE ACETONIDE 0.1% CREAM) 15 Gm Cream..g., 15 GM TP PRN, TUBE 06/07/17 Acetaminophen (TYLENOL EXTRA STRENGTH) 500 Mg Tablet, 1-2 TAB PO Q4-6H, TAB 06/07/17 Hydrocortisone/Aloe Vera (HYDROCORTISONE 1% OINTMENT) 28 Gm Oint...g., 28 GM TP PRN 03/08/16 Clobetasol Propionate/Emoll (CLOBETASOL EMOLLIENT 0.05% CRM) 15 Gm Cream..g., 0 TP PRN 03/08/16 Bacitracin (BACITRACIN ZINC) 0.9 Gm Oint, 0.9 GM TP PRN 03/08/16 Tolnaftate (ATHLETE'S FOOT) 150 Gm [place], 150 GM TP PRN, SPRAY 03/08/16 Discontinued Reported Medications Aripiprazole (ABILIFY) 15 Mg Tablet, 15 MG PO QHS, TAB 03/05/19 Naproxen Sodium (ALEVE) 220 Mg Capsule, 220 MG PO Q12H PRN for PAIN, CAPSULE 03/05/18 Guaifenesin (ROBAFEN) 100 Mg/5 Ml Liquid, 400 MG PO Q4-6H PRN for CONGESTION 09/03/17 Menthol/Zinc Oxide (GOLD TADEO MEDICATED BODY POWD) 113 Gm Powder, 113 GM TP 09/03/17 Ibuprofen (IBUPROFEN) 200 Mg Capsule, 1-2 CAP PO Q6H PRN for PAIN, CAPSULE 03/08/16 Cetirizine Hcl (Zyrtec) 10 Mg Tab, 10 MG PO QHS 03/11/13 Allergies: Coded Allergies: No Known Drug Allergies (Verified , 03/05/18) Hx Smoking: No Caffeine Intake: Coffee, Soda Caffeine/Cups Per Day: 5-6x/day Hx Alcohol Use: No Hx Substance Use Disorder: No Review of Systems All Systems Reviewed/Normal: Yes, Except as Noted Genitourinary: Other (pain to penis from catheter) Exam Vital Signs Vital Signs Date Time Temp Pulse Resp B/P (MAP) Pulse Ox O2 Delivery O2 Flow Rate FiO2 03/29/19 11:00 101/52 (68) 03/29/19 10:59 92 Nasal Cannula 3.0 03/29/19 10:43 98.8 92 16 General Appearance: Alert, Awake, No Acute Distress, Afebrile Neuro: No Gross deficits Cardiovascular: Regular Rate and Rhythm Respiratory: No Respiratory Distress, Clear to Auscultation Psych: Appropriate Mood & Affect Medical Decision Making Data Points Result Diagram: 03/29/1915 03/29/1915 Assessment and Plan Problems: (1) Hypothyroidism Status: Chronic Assessment & Plan: Continue chronic levothyroxine. (2) Down syndrome Status: Chronic Assessment & Plan: Patient of the [facility]. Venous Thromboembolism Antithrombotics Is Pt On Any Antithrombotics?: No Exam Sepsis Risk: No Definite Risk EVA ELYP Mar 29, 2019 11:37
[2019-03-29] MEDS ORDERED: LEVO175T42 PO (14:50)
[2019-03-29] MEDS ORDERED: OXYB5TAB80 PO (14:52)
[2019-03-29] MEDS: DOCUSATE SODIUM 100 MG CAP PO SCH (20:08)
[2019-03-30] VITALS: BP 104/61
[2019-03-30] MEDS ORDERED: NS(*) 0.9% 1000 ML BAG 1,000 ML IV PRN (02:14)
[2019-03-30 04:06] VITALS: BP 118/66
[2019-03-30] MEDS ORDERED: LEVOTHYROXINE SOD 0.175 MG TAB PO SCH (06:00)
[2019-03-30 07:16] VITALS: BP 96/72
[2019-03-30] MEDS: DOCUSATE SODIUM 100 MG CAP PO SCH (08:40)
[2019-03-30] MEDS ORDERED: VENLAFAXINE XR 75 MG CAPCR PO SCH (09:00)
--- NOTE | 2019-03-30 09:17 | Hospitalist Progress Note ---
Subjective Progress Notes Subjective He was admitted s/p stent removal. He has no complaints this morning. He had no acute events overnight. Patient Complains of: Cardiovascular: No: Chest Pain Respiratory: No: Shortness of Breath Physical Exam Vital Signs Date Time Temp Pulse Resp B/P (MAP) Pulse Ox O2 Delivery O2 Flow Rate FiO2 03/30/19 07:59 92 03/30/19 07:56 Room Air 03/30/19 07:16 97.7 59 18 96/72 (80) 1.5 Intake and Output 03/30/19 01:00 Intake Total 3202 ml Output Total 3300 ml Balance -98 ml Intake Oral 2702 ml IV Total 500 ml Output Urine Total 3300 ml Emesis 0 ml Estimated Blood Loss 0 ml # Bowel Movements 0 General Appearance: Alert, Awake, No Acute Distress, Afebrile Neuro: No Gross deficits Cardiovascular: Regular Rate and Rhythm Respiratory: No Respiratory Distress, Clear to Auscultation Psych: Alert & Oriented X3, Appropriate Mood & Affect Result Diagram: 03/29/19 0815 03/30/19 0531 Assessment and Plan Problems: (1) Hypothyroidism Status: Chronic Assessment & Plan: Continue chronic levothyroxine. (2) Down syndrome Status: Chronic Assessment & Plan: Patient of the [facility]. Exam Sepsis Risk: No Definite Risk EVA ELY Mar 30, 2019 09:17
== END 2019-03-30 08:28 | disposition hospice, inpatient (51) ==
LOC: OR 01:17 → MED 10:40
PROVIDERS: ADMIT Urology; ATTEND Urology
DX: N13.30 Unspecified hydronephrosis (principal); E03.9 Hypothyroidism, unspecified; Q90.9 Down syndrome, unspecified; G47.33 Obstructive sleep apnea (adult) (pediatric); E66.9 Obesity, unspecified; K21.9 Gastro-esophageal reflux disease without esophagitis; F32.9 Major depressive disorder, single episode, unspecified; E29.0 Testicular hyperfunction; N18.9 Chronic kidney disease, unspecified; Z79.899 Other long term (current) drug therapy
CPT/HCPCS: 36415; 52351; 74420; 85025; C1769; C1894; G0378; J1100; J2001; J2405; J2704; J3010; J3490; J7030; Q9966; 82040; 82247; 82310; 82374; 82435; 82565; 82947; 84075; 84132; 84155; 84295; 84450; 84460; 84520; J0690

== ENCOUNTER → 2019-04-05 | Outpatient (CLI) | payer MEDICAID ==
[2019-03-06 08:40] VITALS: BMI 52.7
[~2019-04-05] MED LIST changes: +LEVO175T42 PO; +OXYB5TAB80 PO
== END ==
LOC: LAB 09:16
PROVIDERS: ATTEND Urology
DX: E29.1 Testicular hypofunction (principal); Z85.47 Personal history of malignant neoplasm of testis; N18.9 Chronic kidney disease, unspecified
CPT/HCPCS: 36415; 82040; 82247; 82310; 82374; 82435; 82565; 82947; 84075; 84132; 84155; 84295; 84450; 84460; 84520

== ENCOUNTER → 2019-04-13 | Outpatient (CLI) | payer MEDICAID ==
[2019-03-06 08:40] VITALS: BMI 52.7
[~2019-04-13] MED LIST changes: +FUROSEMIDE 40 MG/4 ML VIAL IVP ONE
--- NOTE | 2019-04-13 17:22 | RADIOLOGY IMAGING REPORT ---
FACILITY: [facility] - [place] PATIENT NAME: Robel Cason : 1980 MR: [id number] V: [id number] EXAM DATE: ORDERING PHYSICIAN: TITA VERDUGO TECHNOLOGIST: Location: [facility] [place] Patient: Robel Cason : 1980 Visit/Account:[id number] Date of Sevice: 04/13/2019 ADDENDUM #1 ADDENDUM: I have been asked to review the case by Dr. Verdugo. Evaluation of the right excretion curve demonstrates that the administration of Lasix does improve ex cretion. Per Dr. Verdugo, there is no stricture or obstruction of the right ureter on retrograde uret erogram. The mechanism of delayed washout of radiotracer from the kidney is not entirely clear but i s augmented with Lasix. Report Dictated By: Jamal Baugh MD at 04/14/2019 9:29 AM Report E-Signed By: Jamal Baugh MD at 04/14/2019 9:34 AM ORIGINAL REPORT Examination: NM KIDNEY FLOW&FUNCTION W/ DRUG Comparison: CT and ultrasound 03/05/2019. History: Right hydronephrosis. Severely atrophic left kidney. Procedure: Standard nuclear medicine renal flow and function exam is performed with 20.6 mCi techneti um 99m MAG3. Serial anterior imaging of the abdomen is acquired; 20 minutes following tracer adminis tration, the study is augmented with 40 mg intravenous Lasix. Standard renogram curves are calculate d and evaluated. Findings: There is no appreciable clearance of tracer by the left renal parenchyma. There is appropri ate clearance of the tracer by the right renal parenchyma. Tracer enters the dilated renal pelvis but there is very delayed passage of tracer into the ureter. Effective renal plasma flow (as a percentage of total): Left kidney: 5% Right kidney: 95% Renal washout half-time: Left kidney: No measurable washout Right kidney: 31 minutes minutes. IMPRESSION: 1. Left kidney severe atrophy. 2. Right hydronephrosis with delayed washout, consistent with obstruction. Report Dictated By: Abdulaziz Khanna MD at 04/13/2019 5:07 PM Report E-Signed By: Abdulaziz Khanna MD at 04/13/2019 5:16 PM IVELISSEN:DAREK
== END ==
LOC: NUC 00:56
PROVIDERS: ATTEND Urology
DX: N26.1 Atrophy of kidney (terminal) (principal); N13.30 Unspecified hydronephrosis
CPT/HCPCS: 78708; A9539

== ENCOUNTER → 2019-05-18 | Outpatient (CLI) | payer MEDICAID ==
[2019-03-06 08:40] VITALS: BMI 52.7
[~2019-05-18] MED LIST changes: -FUROSEMIDE 40 MG/4 ML VIAL IVP ONE
--- NOTE | 2019-05-18 14:30 | RADIOLOGY IMAGING REPORT ---
FACILITY: [facility] - [place] PATIENT NAME: Robel Cason : 1980 MR: [id number] V: [id number] EXAM DATE: ORDERING PHYSICIAN: TITA MURPHY TECHNOLOGIST: Location: [facility] - [place] Patient: Robel Cason : 1980 Visit/Account:[id number] Date of Sevice: 05/18/2019 EXAMINATION: Renal ultrasound HISTORY: CKD, history of chronic hydro-, empty bladder. COMPARISON: 03/05/2019 FINDINGS: Kidneys: Right kidney- 10.6 x 5.9 x 6.5 cm, normal parenchymal thickness and echogenicity. No focal parenchym al abnormality. Left kidney- 11.5 x 5.9 x 6.3 cm, renal parenchyma is thinned and difficult to see. There is no foc al parenchymal abnormality. There is decreased flow to the left kidney when compared to the right. Hydronephrosis: There is mild right hydronephrosis, improved compared to the prior study. Severe lef t hydronephrosis is unchanged. Bladder: Partially distended. Bladder appears thick-walled. No focal abnormality seen. Right urete ral jet is identified, left is not. Post void volume of the bladder is calculated at 138 mL. Abdominal aorta and IVC: Patent by Doppler ultrasound. IMPRESSION: 1. Mild right hydronephrosis, this is improved compared to the prior study. There is severe left hy dronephrosis similar to previous. 2. Marked cortical thinning on the left, this is unchanged. 3. Thick-walled bladder without focal abnormality. Right ureteral jet is visualized, left is not. 4. Post void residual of 138 mL. Report Dictated By: Shania Celeste MD at 05/18/2019 2:01 PM Report E-Signed By: Shania Celeste MD at 05/18/2019 2:07 PM WSN:[email or web address]
== END ==
LOC: US 11:30
PROVIDERS: ATTEND Urology
DX: N13.30 Unspecified hydronephrosis (principal)
CPT/HCPCS: 76705

== ENCOUNTER → 2019-06-10 | Outpatient (CLI) | payer MEDICAID ==
[2019-03-06 08:40] VITALS: BMI 52.7
== END ==
LOC: LAB 15:34
PROVIDERS: ATTEND Internal Medicine Nephrology
DX: N18.3 Chronic kidney disease, stage 3 (moderate) (principal)
CPT/HCPCS: 36415; 82040; 82310; 82374; 82435; 82565; 82947; 84100; 84132; 84295; 84520